=== PATIENT | female | born 1955 | race Caucasian/White ===

== ENCOUNTER 2019-11-24 11:17 | Inpatient (IN) | payer BC, MEDICAID ==
[~2019-11-24] VITALS: Ht 167.6 cm; Wt 70.2 kg
[2019-11-24] MEDS ORDERED: MORPHINE SULF INJ 2 MG/ML SYRINGE 1ML IV ONE ×2 (12:00→14:00)
[2019-11-24] MEDS ORDERED: ONDANSETRON HCL 4 MG/2 ML VIAL IV ONE ×2 (12:00→14:00)
[2019-11-24] MEDS ORDERED: SODIUM CHLORIDE 0.9% 1,000 ML IVB ONE (13:16)
[2019-11-24 14:15] LABS: Eosinophils # (auto) 0 10 ^3/uL (0-0.8); Eosinophils % (auto) 0.4 % (0.0-7.0); Hemoglobin 8.9 g/dL (12.2-16.2); Mean Corpuscular Hemoglobin 19.3 pg (28.0-32.0); Monocytes # (auto) 0.4 10 ^3/uL (0-1.3)
[2019-11-24 14:17] LABS: Basophils # (auto) 0 10 ^3/uL (0-0.2); Basophils % (auto) 0.4 % (0.0-2.0); Hematocrit 29.6 % (36.0-46.0); Lymphocytes # (auto) 0.8 10 ^3/uL (0.4-5.4); Lymphocytes % (auto) 7.4 % (10.0-50.0); Mean Corpuscular Hgb Conc. 30.1 g/dL (32.0-36.0); Monocytes % (auto) 4.2 % (0.0-12.0); Neutrophils % (auto) 87.6 % (37.0-80.0); Platelet Count (auto) 242 10^3/uL (140-450); Red Blood Cells 4.63 10^6/uL (4.0-5.20); Red Cell Distribution Width 19.4 % (11.8-14.3); White Blood Cell 10.2 10^3/uL (4.4-10.8)
[2019-11-24 14:23] LABS: Albumin 3.5 g/dL (3.4-5.0); BUN/Creatinine Ratio 14.3; Calcium 8.9 mg/dL (8.5-10.1); Magnesium 2.2 mg/dL (1.6-2.6); Potassium 3.8 mmol/L (3.5-5.1)
[2019-11-24 14:24] LABS: INR 0.98 (0.9-1.15); Partial Thromboplastin Time 23.1 sec (23.64-32.05)
[2019-11-24 14:26] LABS: Bilirubin, Total 0.4 mg/dL (0.2-1.0); Total Protein 7.7 g/dL (6.4-8.2)
[2019-11-24] MEDS ORDERED: METOCLOPRAMIDE HCL 5MG/ml INJ 2ml VIAL IV PRN (14:45)
[2019-11-24] MEDS ORDERED: TEMAZEPAM 15 MG CAP PO PRN (14:45)
[2019-11-24] MEDS ORDERED: ALUM & MAG HYDROX-SIMETH LIQ(MAALOX) 30 ML PO PRN (14:45)
[2019-11-24] MEDS ORDERED: HYDROcodone-ACET 5/325MG TAB PO PRN (14:45)
[2019-11-24] MEDS ORDERED: LORazepam 0.5 MG TAB PO PRN (14:45)
[2019-11-24] MEDS: D5W/SOD CHL 0.45% 1,000 ML IV SCH (14:45)
[2019-11-24] MEDS ORDERED: MORPHINE SULF INJ 2 MG/ML SYRINGE 1ML IV PRN (14:45)
[2019-11-24] MEDS ORDERED: DOCUSATE SOD 100 MG CAP PO PRN (14:45)
[2019-11-24] MEDS ORDERED: NITROGLYCERIN 0.4 MG SL TAB SL PRN (14:45)
[2019-11-24 15:05] LABS: Urine Amorphous Crystal FEW /hpf (None Seen); Urine Bacteria NONE SEEN /hpf (None Seen); Urine Blood Negative /uL (Negative); Urine Hyaline Cast FEW /lpf (0 - 2); Urine Specific Gravity 1.014 (1.001-1.035); Urine WBC 3 /hpf (0 - 5)
[2019-11-24] MEDS: MORPHINE SULFATE 4 MG/ML SYR/VIAL IV PRN ×2 (17:14→21:40)
[2019-11-24 22:00] VITALS: BP 109/69
[2019-11-24] MEDS ORDERED: PANTOPRAZOLE 40 MG/10 ML VIAL INJ IV ONE (23:15)
[2019-11-25] MEDS: MORPHINE SULFATE 4 MG/ML SYR/VIAL IV PRN ×2 (02:20→06:21)
[2019-11-25] MEDS: ONDANSETRON HCL 4 MG/2 ML VIAL IV PRN ×3 (05:31→17:56)
[2019-11-25 06:17] VITALS: BP 114/64
[2019-11-25 06:18] LABS: Basophils # (auto) 0 10 ^3/uL (0-0.2); Basophils % (auto) 0.4 % (0.0-2.0); Eosinophils # (auto) 0.1 10 ^3/uL (0-0.8); Hematocrit 26.9 % (36.0-46.0); Hemoglobin 8.1 g/dL (12.2-16.2); Lymphocytes # (auto) 0.8 10 ^3/uL (0.4-5.4); Lymphocytes % (auto) 12.4 % (10.0-50.0); Mean Corpuscular Hemoglobin 19.5 pg (28.0-32.0); Mean Corpuscular Hgb Conc. 30.1 g/dL (32.0-36.0); Mean Corpuscular Volume 64.9 fL (80.0-100.0); Monocytes # (auto) 0.6 10 ^3/uL (0-1.3); Monocytes % (auto) 9.1 % (0.0-12.0); Neutrophils # (auto) 4.8 10 ^3/uL (1.6-8.6); Neutrophils % (auto) 77.1 % (37.0-80.0); Nucleated Red Blood Cells % 0.1 %; Platelet Count (auto) 176 10^3/uL (140-450); Red Blood Cells 4.14 10^6/uL (4.0-5.20); Red Cell Distribution Width 19.4 % (11.8-14.3); White Blood Cell 6.2 10^3/uL (4.4-10.8)
[2019-11-25 06:43] LABS: Potassium 4.3 mmol/L (3.5-5.1)
[2019-11-25 07:00] LABS: BUN/Creatinine Ratio 14.1; Bilirubin, Total 0.7 mg/dL (0.2-1.0); Calcium 8.2 mg/dL (8.5-10.1); Magnesium 2.4 mg/dL (1.6-2.6); Phosphorus 2.4 mg/dL (2.5-4.90)
[2019-11-25 09:00] VITALS: BP 122/65
[2019-11-25] MEDS: HYDROmorphone HCL 2 MG/ML VL IV PRN ×2 (09:44→19:46)
[2019-11-25] MEDS: D5W/SOD CHL 0.45% 1,000 ML IV SCH (09:51)
[2019-11-25] MEDS ORDERED: ENOXAPARIN SOD 30 MG/0.3 ML SYRINGE SC SCH (10:00)
[2019-11-25] MEDS: PANTOPRAZOLE 40 MG/10 ML VIAL INJ IV SCH (10:22)
[2019-11-25 13:00] VITALS: BP 131/65
[2019-11-25 17:00] VITALS: BP 113/59
[2019-11-25 22:00] VITALS: BP 107/55
[2019-11-26] MEDS: HYDROmorphone HCL 2 MG/ML VL IV PRN ×5 (00:04→23:47)
[2019-11-26] MEDS: D5W/SOD CHL 0.45% 1,000 ML IV SCH ×2 (00:05→14:33)
[2019-11-26 05:00] VITALS: BP 121/61
[2019-11-26 05:24] LABS: Basophils # (auto) 0 10 ^3/uL (0-0.2); Eosinophils # (auto) 0 10 ^3/uL (0-0.8); Hemoglobin 7.7 g/dL (12.2-16.2); White Blood Cell 10.5 10^3/uL (4.4-10.8)
[2019-11-26 05:27] LABS: Basophils % (auto) 0.3 % (0.0-2.0); Eosinophils % (auto) 0.2 % (0.0-7.0); Hematocrit 25.7 % (36.0-46.0); Lymphocytes # (auto) 0.9 10 ^3/uL (0.4-5.4); Lymphocytes % (auto) 8.2 % (10.0-50.0); Mean Corpuscular Hemoglobin 19.6 pg (28.0-32.0); Mean Corpuscular Volume 65.3 fL (80.0-100.0); Monocytes # (auto) 1.3 10 ^3/uL (0-1.3); Monocytes % (auto) 12.6 % (0.0-12.0); Neutrophils # (auto) 8.3 10 ^3/uL (1.6-8.6); Neutrophils % (auto) 78.7 % (37.0-80.0); Platelet Count (auto) 171 10^3/uL (140-450); Red Blood Cells 3.94 10^6/uL (4.0-5.20); Red Cell Distribution Width 19.2 % (11.8-14.3)
[2019-11-26 05:45] LABS: Calcium 7.8 mg/dL (8.5-10.1); Potassium 3.6 mmol/L (3.5-5.1)
[2019-11-26 05:47] LABS: BUN/Creatinine Ratio 9.1
[2019-11-26] MEDS: ONDANSETRON HCL 4 MG/2 ML VIAL IV PRN ×4 (06:22→23:51)
[2019-11-26] MEDS: PANTOPRAZOLE 40 MG/10 ML VIAL INJ IV SCH (09:47)
[2019-11-26 13:00] VITALS: BP 135/69
[2019-11-26 17:00] VITALS: BP 137/73
[2019-11-26 22:00] VITALS: BP 121/65
[2019-11-27] MEDS: ONDANSETRON HCL 4 MG/2 ML VIAL IV PRN ×3 (04:01→12:35)
[2019-11-27] MEDS: HYDROmorphone HCL 2 MG/ML VL IV PRN ×3 (04:01→12:30)
[2019-11-27 05:41] VITALS: BP 113/64
[2019-11-27 06:43] LABS: Basophils # (auto) 0 10 ^3/uL (0-0.2); Basophils % (auto) 0.3 % (0.0-2.0); Eosinophils # (auto) 0 10 ^3/uL (0-0.8); Eosinophils % (auto) 0.3 % (0.0-7.0); Hematocrit 24.8 % (36.0-46.0); Hemoglobin 7.6 g/dL (12.2-16.2); Lymphocytes # (auto) 0.5 10 ^3/uL (0.4-5.4); Lymphocytes % (auto) 6.5 % (10.0-50.0); Mean Corpuscular Hemoglobin 19.8 pg (28.0-32.0); Mean Corpuscular Hgb Conc. 30.7 g/dL (32.0-36.0); Mean Corpuscular Volume 64.4 fL (80.0-100.0); Monocytes # (auto) 0.7 10 ^3/uL (0-1.3); Monocytes % (auto) 8.4 % (0.0-12.0); Neutrophils % (auto) 84.5 % (37.0-80.0); Platelet Count (auto) 173 10^3/uL (140-450); Red Blood Cells 3.85 10^6/uL (4.0-5.20); Red Cell Distribution Width 19.2 % (11.8-14.3); White Blood Cell 8.2 10^3/uL (4.4-10.8)
[2019-11-27 07:04] LABS: Potassium 3.9 mmol/L (3.5-5.1)
[2019-11-27 07:11] LABS: BUN/Creatinine Ratio 14.3; Calcium 8.2 mg/dL (8.5-10.1)
[2019-11-27 08:00] VITALS: BP 120/63
[2019-11-27] MEDS: PANTOPRAZOLE 40 MG/10 ML VIAL INJ IV SCH (08:25)
[2019-11-27 09:00] VITALS: BP 120/63
[2019-11-27] MEDS: D5W/SOD CHL 0.45% 1,000 ML IV SCH (09:25)
[2019-11-27 13:00] VITALS: BP 108/58
[2019-11-27 15:01] VITALS: BP 108/58
[2019-11-27 17:00] VITALS: BP 132/54
== END 2019-11-27 16:53 | disposition home or self-care (01) | DRG 342 ==
LOC: EDBD 11:17 → ER 11:17 → TELE 11:18 → TELE-CENTR 19:15
PROVIDERS: ADMIT Hospitalist; ATTEND Internal Medicine
DX: S82.142A Displaced bicondylar fracture of left tibia, initial encounter for closed fracture (principal); R71.0 Precipitous drop in hematocrit; F17.210 Nicotine dependence, cigarettes, uncomplicated; Z96.642 Presence of left artificial hip joint; S82.402A Unspecified fracture of shaft of left fibula, initial encounter for closed fracture; W01.0XXA Fall on same level from slipping, tripping and stumbling without subsequent striking against object, initial encounter; Z96.659 Presence of unspecified artificial knee joint; Z82.49 Family history of ischemic heart disease and other diseases of the circulatory system; Z86.711 Personal history of pulmonary embolism; Z86.718 Personal history of other venous thrombosis and embolism; Z90.710 Acquired absence of both cervix and uterus; Z98.84 Bariatric surgery status; Z99.3 Dependence on wheelchair; Y93.89 Activity, other specified; Y92.89 Other specified places as the place of occurrence of the external cause; Y99.8 Other external cause status
CPT/HCPCS: 36415; 71045; 72192; 73560; 73700; 80048; 80053; 81001; 83735; 84100; 85025; 85610; 85730; 93306; 96361; 96374; 96375; 96376; C9113; G0378; J2405

== ENCOUNTER → 2020-03-18 | Outpatient (CLI) | payer MEDICAID, OTHER ==
[~2020-03-18] MED LIST: CHOL1TAB16 PO
[2020-03-18 08:08] LABS: Eosinophils # (auto) 0.1 10 ^3/uL (0-0.8); Eosinophils % (auto) 2.4 % (0.0-7.0); Monocytes # (auto) 0.3 10 ^3/uL (0-1.3); Neutrophils # (auto) 2.8 10 ^3/uL (1.6-8.6); Nucleated Red Blood Cells % 0.1 %
[2020-03-18 08:12] LABS: Basophils # (auto) 0.2 10 ^3/uL (0-0.2); Basophils % (auto) 4.1 % (0.0-2.0); Hematocrit 33.9 % (36.0-46.0); Hemoglobin 10.4 g/dL (12.2-16.2); Lymphocytes # (auto) 0.8 10 ^3/uL (0.4-5.4); Lymphocytes % (auto) 19.9 % (10.0-50.0); Mean Corpuscular Hemoglobin 20.8 pg (28.0-32.0); Mean Corpuscular Hgb Conc. 30.6 g/dL (32.0-36.0); Monocytes % (auto) 6.9 % (0.0-12.0); Neutrophils % (auto) 66.7 % (37.0-80.0); Platelet Count (auto) 262 10^3/uL (140-450); Red Blood Cells 4.98 10^6/uL (4.0-5.20); Red Cell Distribution Width 18.2 % (11.8-14.3); White Blood Cell 4.2 10^3/uL (4.4-10.8)
[2020-03-18 08:32] LABS: % Iron Saturation 4.1 % (15-50)
[2020-03-18 08:35] LABS: INR 0.93 (0.9-1.15); Partial Thromboplastin Time 25.6 sec (23.0-31.2)
[2020-03-18 08:37] LABS: Potassium 4.2 mmol/L (3.5-5.1)
[2020-03-18 08:51] LABS: Albumin 3.5 g/dL (3.4-5.0); BUN/Creatinine Ratio 13.5; Bilirubin, Total 0.4 mg/dL (0.2-1.0); Calcium 9.2 mg/dL (8.5-10.1)
[2020-03-18 11:30] LABS: Ferritin 7.8 ng/mL (10-322); Folate (Folic Acid) 6.56 ng/mL (5.38-24)
== END | disposition home or self-care (01) ==
LOC: LAB 07:22
PROVIDERS: ATTEND Internal Medicine
DX: I10 Essential (primary) hypertension (principal); E11.65 Type 2 diabetes mellitus with hyperglycemia
CPT/HCPCS: 36415; 80053; 80061; 82274; 82306; 82607; 82728; 82746; 83036; 83540; 83550; 83615; 84443; 85025; 85045; 85610; 85730

== ENCOUNTER 2020-03-31 12:22 | Inpatient (IN) | payer OTHER, MEDICAID ==
[~2020-03-31] VITALS: Ht 165.1 cm; Wt 65.2 kg
[2020-03-31 13:28] LABS: Basophils # (auto) 0 10 ^3/uL (0-0.2); Eosinophils # (auto) 0.1 10 ^3/uL (0-0.8); Lymphocytes # (auto) 1.1 10 ^3/uL (0.4-5.4); Neutrophils # (auto) 3.8 10 ^3/uL (1.6-8.6); White Blood Cell 5.4 10^3/uL (4.4-10.8)
[2020-03-31 13:30] LABS: Basophils % (auto) 0.7 % (0.0-2.0); Eosinophils % (auto) 1.8 % (0.0-7.0); Hematocrit 33.6 % (36.0-46.0); Hemoglobin 10.4 g/dL (12.2-16.2); Lymphocytes % (auto) 21.2 % (10.0-50.0); Mean Corpuscular Hemoglobin 20.8 pg (28.0-32.0); Mean Corpuscular Hgb Conc. 30.9 g/dL (32.0-36.0); Mean Corpuscular Volume 67.4 fL (80.0-100.0); Monocytes # (auto) 0.3 10 ^3/uL (0-1.3); Monocytes % (auto) 6.1 % (0.0-12.0); Neutrophils % (auto) 70.2 % (37.0-80.0); Platelet Count (auto) 249 10^3/uL (140-450); Red Blood Cells 4.99 10^6/uL (4.0-5.20); Red Cell Distribution Width 17.3 % (11.8-14.3)
[2020-03-31 13:36] LABS: INR 0.83 (0.9-1.15)
[2020-03-31 13:39] LABS: Albumin 3.7 g/dL (3.4-5.0); Anion Gap 4 (5-15); Blood Urea Nitrogen 11 mg/dL (7-18); Calcium 9.9 mg/dL (8.5-10.1); Carbon Dioxide 30 mmol/L (21-32); Chloride 105 mmol/L (98-107); Glucose 86 mg/dL (74-106); Magnesium 2.5 mg/dL (1.6-2.6); Potassium 3.9 mmol/L (3.5-5.1); Sodium 139 mmol/L (136-145)
[2020-03-31 13:40] LABS: Partial Thromboplastin Time 20.1 sec (23.0-31.2)
[2020-03-31 13:43] LABS: Alanine Aminotransferase 15 U/L (13-56); Alkaline Phosphatase 123 U/L (45-117); Aspartate Aminotransferase 19 U/L (15-37); BUN/Creatinine Ratio 12.8; Bilirubin, Total 0.3 mg/dL (0.2-1.0); GFR African American 85 mL/min; GFR Non-African American 70 mL/min; Total Protein 8.1 g/dL (6.4-8.2)
[2020-03-31 16:22] LABS: Urine Bacteria NONE SEEN /hpf (None Seen); Urine Blood Negative /uL (Negative); Urine Specific Gravity 1.009 (1.001-1.035); Urine WBC 1 /hpf (0 - 5)
[2020-03-31] MEDS ORDERED: ALUM & MAG HYDROX-SIMETH LIQ(MAALOX) 30 ML PO ONE (17:00)
[2020-03-31] MEDS ORDERED: NITROGLYCERIN 0.4 MG SL TAB SL PRN ×3 (17:00→18:00)
[2020-03-31] MEDS ORDERED: MORPHINE SULF INJ 2 MG/ML SYRINGE 1ML IV PRN ×3 (17:00→18:00)
[2020-03-31] MEDS ORDERED: MORPHINE SULFATE 4 MG/ML SYR/VIAL IV PRN (17:00)
[2020-03-31] MEDS ORDERED: MULTIPLE VITAMIN TAB PO ONE (17:30)
[2020-03-31] MEDS ORDERED: LACTATED RINGER'S 1,000 ML IV ONE (17:30)
[2020-03-31] MEDS ORDERED: FOLIC ACID 1 MG TAB PO ONE (17:30)
[2020-03-31] MEDS ORDERED: CALCIUM W/VIT D (600MG/400IU) TAB PO ONE (17:30)
[2020-03-31 17:57] VITALS: BP 131/72
[2020-03-31] MEDS ORDERED: ACETAMINOPHEN 325 MG TAB PO PRN (18:00)
--- NOTE | 2020-03-31 18:00 | NUR ---
Telemetry admit from ER EASTON BRUNO admitted to Telemetry unit after SBAR received. Patient oriented to Ina Esquivel primary RN, unit, room, bed, and unit policies regarding patient care and visiting hours. Patient now on continuous telemetry monitoring, tele box #82 and telemetry reading on arrival to unit is SR 67 bpm. Patient weighed by bed scale. Instructed patient on POC, fall precautions and to call for assistance as needed. Patient verbalized understanding. Fall precautions in place with call light within reach.
[2020-03-31] MEDS: SODIUM CHLORIDE 0.9% 1,000 ML IV SCH (18:15)
--- NOTE | 2020-03-31 18:30 | NUR ---
BSC placed at bedside
--- NOTE | 2020-03-31 18:43 | NUR ---
Closing note Patient resting in bed with even and unlabored respirations, no distress noted. Fall precautions in place with call light within reach.
--- NOTE | 2020-03-31 19:18 | NUR ---
Care endorsed to ADOLFO Olivo.
[2020-03-31] MEDS: ATORVASTATIN 20 MG TAB PO SCH (21:32)
[2020-03-31] MEDS: FAMOTIDINE 20 MG TAB PO SCH (21:32)
[2020-03-31] MEDS: ONDANSETRON HCL 4 MG/2 ML VIAL IV PRN (21:32)
[2020-03-31] MEDS: CARVEDILOL 3.125 MG TAB PO SCH ×2 (21:33→21:35)
[2020-03-31 22:00] VITALS: BP 142/84
[2020-03-31 23:08] LABS: Alcohol, Urine < 3.0 mg/dL (0-10); Cannabinoid Screen, Urine POSITIVE (NEGATIVE); Cocaine Screen, Urine NEGATIVE (NEGATIVE); Phencyclidine Screen, Urine NEGATIVE (NEGATIVE)
[2020-03-31 23:15] LABS: Amphetamine Screen, Urine NEGATIVE (NEGATIVE); Barbiturate Scree,Urine NEGATIVE (NEGATIVE); Benzodiazephine Screen, Urine NEGATIVE (NEGATIVE); Opiate Scree,Urine NEGATIVE (NEGATIVE)
[2020-04-01] VITALS (8 sets, daily range): BP systolic 101–158; BP diastolic 53–74
[2020-04-01] MEDS: ONDANSETRON HCL 4 MG/2 ML VIAL IV PRN ×3 (05:25→21:20)
[2020-04-01] MEDS: HYDROcodone-ACET 5/325MG TAB PO PRN ×3 (05:25→21:21)
[2020-04-01] MEDS: SODIUM CHLORIDE 0.9% 1,000 ML IV SCH ×2 (05:26→19:45)
--- NOTE | 2020-04-01 07:20 | NUR ---
Opening Shift Note Assumed care of patient, awake and alert. No S/S of distress/SOB or pain. Bed is low, locked with 2x side rails up. Call light is within reach. Instructed on POC and to call for assist PRN, will continue to monitor for changes Q1hr and PRN.
[2020-04-01] MEDS: LISINOPRIL 5 MG TAB PO SCH (09:14)
[2020-04-01] MEDS: MULTIPLE VITAMIN TAB PO SCH (09:14)
[2020-04-01] MEDS: FAMOTIDINE 20 MG TAB PO SCH (09:14)
[2020-04-01] MEDS: CARVEDILOL 3.125 MG TAB PO SCH (09:14)
[2020-04-01] MEDS: CALCIUM W/VIT D (600MG/400IU) TAB PO SCH ×2 (09:14→17:37)
[2020-04-01] MEDS: FOLIC ACID 1 MG TAB PO SCH (09:15)
[2020-04-01] MEDS: DOCUSATE SOD 100 MG CAP PO SCH (09:15)
[2020-04-01] MEDS ORDERED: ASPirin 81 mg TAB PO SCH (10:00)
--- NOTE | 2020-04-01 10:00 | NUR ---
Dr. Lantigua at bedside Discussing POC with patient. MD aware of elevated blood pressure. MD to review medications and input orders. Will continue to monitor Q1hr and PRN.
[2020-04-01] MEDS ORDERED: CHOL1TAB16 PO (10:30)
--- NOTE | 2020-04-01 10:31 | NUR ---
Home medication Patient reports only taking Vitamin D3 50,000 units PO once weekly. Patient states her first dose was last Wednesday03/27/20. Medication reconciliation updated.
[2020-04-01] MEDS ORDERED: PANTOPRAZOLE 40 MG TAB PO ONE (11:15)
[2020-04-01] MEDS ORDERED: amLODIPine BESYLATE 5 MG TAB PO ONE (11:45)
--- NOTE | 2020-04-01 12:01 | NUR ---
Cardio at bedside FARMWORK[employer] BULBS Cancino at bedside discussing poc with patient.
--- NOTE | 2020-04-01 12:55 | NUR ---
Nutrition Assessment Est energy needs 6474-3499 kcal (25-30 kcal/kg BW 64.5kg) Est protein needs 52-65g (0.8-1g/kg BW 64.5kg) Will reassess prn. Addendum: 04/01/20 at [address] Amended: Links added.
[2020-04-01] MEDS ORDERED: IOHEXOL 350 MG/ML 100ML IJ ONE ×2 (13:42→15:23)
[2020-04-01] MEDS ORDERED: NICOTINE 14 MG/24HR TOPICAL PATCH TD ONE (14:00)
--- NOTE | 2020-04-01 14:36 | NUR ---
Orthostatic VS Done. See interventions.
--- NOTE | 2020-04-01 19:20 | NUR ---
Opening Shift Note Received report from Lacey MATA. Assumed care of patient, awake and alert. No S/S of distress/SOB or pain. Instructed on POC and to call for assist PRN, will continue to monitor for changes Q1hr and PRN.
--- NOTE | 2020-04-01 22:05 | NUR ---
Dr. Gomez at bedside.
[2020-04-01] MEDS: PANTOPRAZOLE 40 MG TAB PO SCH (22:14)
[2020-04-01] MEDS: ATORVASTATIN 20 MG TAB PO SCH (22:14)
[2020-04-02 05:23] VITALS: BP 114/63
[2020-04-02] MEDS: ONDANSETRON HCL 4 MG/2 ML VIAL IV PRN ×2 (05:42→17:02)
--- NOTE | 2020-04-02 05:43 | NUR ---
Patient complains of head, neck and shoulder pain at 6, refused Oscar and preferred to take Tylenol instead, medication given.
[2020-04-02 06:18] LABS: % Iron Saturation 8.3 % (15-50)
[2020-04-02] MEDS: SODIUM CHLORIDE 0.9% 1,000 ML IV SCH ×2 (08:59→22:19)
[2020-04-02] MEDS: FOLIC ACID 1 MG TAB PO SCH (09:42)
[2020-04-02] MEDS: CALCIUM W/VIT D (600MG/400IU) TAB PO SCH ×2 (09:42→17:01)
[2020-04-02] MEDS: LISINOPRIL 5 MG TAB PO SCH (09:45)
[2020-04-02] MEDS: MULTIPLE VITAMIN TAB PO SCH (09:46)
[2020-04-02] MEDS: NICOTINE 14 MG/24HR TOPICAL PATCH TD SCH (09:46)
[2020-04-02] MEDS: PANTOPRAZOLE 40 MG TAB PO SCH ×2 (09:46→22:00)
[2020-04-02] MEDS: DOCUSATE SOD 100 MG CAP PO SCH (09:46)
[2020-04-02] MEDS: LORazepam 0.5 MG TAB PO PRN ×2 (09:46→20:27)
[2020-04-02] MEDS: amLODIPine BESYLATE 5 MG TAB PO SCH (09:47)
--- NOTE | 2020-04-02 09:51 | NUR ---
Dr. Samuel at bedside Discussing POC with patient. Patient does not want to do colonoscopy procedure while inpatient. Patient is an agreement with endoscopy. MD to input new orders.
--- NOTE | 2020-04-02 12:20 | NUR ---
Dr. Laguerre and Dr. Samuel at bedside Discussing POC with patient. New orders received/ carried out.
[2020-04-02] MEDS: HYDROcodone-ACET 5/325MG TAB PO PRN (14:11)
--- NOTE | 2020-04-02 14:33 | NUR ---
pyrotechnic assembler at bedside.
--- NOTE | 2020-04-02 15:21 | NUR ---
EEG-ELECTROENCEPHALOGRAM COMPLETED @ 15:57.
--- NOTE | 2020-04-02 16:27 | NUR ---
IV insertion IV access obtained, via clean sterile technique by inserting a 22 gauge catheter at the left FA after 1 attempt(s). IV secured properly. No trauma to site. Patient tolerated procedure well.
--- NOTE | 2020-04-02 17:28 | NUR ---
COVID 19 Antigen Elsa Test Walked to lab by this RN.
[2020-04-02] MEDS ORDERED: SODIUM FERR GLUC 62.5MG/5ML 125 MG in SODIUM CHL 0.9% 100 ML IV ONE (17:30)
[2020-04-02] MEDS ORDERED: cefTRIAXone 1GM/50ML D5W 50 ML IV ONE ×2 (17:30→20:00)
--- NOTE | 2020-04-02 18:40 | NUR ---
Patient refusing inhouse COVID test Per hospital protocol, lashonda COVID antigen test must be followed up with inhouse COVID test. Patient is refusing follow up test. Attempted to [employer] travel counselor patient on importance of follow up test and patient still declined. Made Dr. Laguerre aware of patient's refusal. No new orders received. Consents for EGD filed in the chart.
[2020-04-02 22:00] VITALS: BP 105/62
[2020-04-02] MEDS: ATORVASTATIN 20 MG TAB PO SCH (22:00)
[2020-04-03 05:00] VITALS: BP 116/65
[2020-04-03 06:34] LABS: Basophils # (auto) 0 10 ^3/uL (0-0.2); Eosinophils # (auto) 0.1 10 ^3/uL (0-0.8); Hemoglobin 9.8 g/dL (12.2-16.2); Lymphocytes # (auto) 0.8 10 ^3/uL (0.4-5.4); Monocytes # (auto) 0.4 10 ^3/uL (0-1.3); Neutrophils # (auto) 4.2 10 ^3/uL (1.6-8.6); White Blood Cell 5.6 10^3/uL (4.4-10.8)
[2020-04-03 06:37] LABS: Basophils % (auto) 0.8 % (0.0-2.0); Eosinophils % (auto) 1.6 % (0.0-7.0); Lymphocytes % (auto) 14.3 % (10.0-50.0); Mean Corpuscular Hemoglobin 20.8 pg (28.0-32.0); Mean Corpuscular Hgb Conc. 30.6 g/dL (32.0-36.0); Monocytes % (auto) 7.7 % (0.0-12.0); Neutrophils % (auto) 75.6 % (37.0-80.0); Platelet Count (auto) 215 10^3/uL (140-450); Red Cell Distribution Width 17.4 % (11.8-14.3)
[2020-04-03 06:49] LABS: BUN/Creatinine Ratio 13.8; Calcium 8.5 mg/dL (8.5-10.1)
[2020-04-03] MEDS ORDERED: FLUMAZENIL 0.1 MG/ML INJ 10ML MDV IV ONE (07:24)
[2020-04-03] MEDS ORDERED: NALOXONE HCL 0.4 MG/ML VIAL ONE (07:24)
--- NOTE | 2020-04-03 07:56 | NUR ---
gi lab called for patient to be taken for egd
[2020-04-03] MEDS: CALCIUM W/VIT D (600MG/400IU) TAB PO SCH (08:00)
--- NOTE | 2020-04-03 08:13 | NUR ---
pt taken to gi lab for egd procedure
[2020-04-03 09:00] VITALS: BP 126/67
[2020-04-03] MEDS ORDERED: cefTRIAXone 1GM/50ML D5W 50 ML IV SCH (09:00)
[2020-04-03] MEDS ORDERED: HYDROmorphone HCL 2 MG/ML VL IV PRN (09:30)
[2020-04-03] MEDS ORDERED: MIDAZOLAM HCL 1MG/1ML-2 ML VIAL IV PRN (09:30)
[2020-04-03] MEDS ORDERED: MORPHINE SULFATE 4 MG/ML SYR/VIAL IV PRN (09:30)
[2020-04-03] MEDS ORDERED: ePHEDrine SULFATE 50 MG/ML AMP IV PRN (09:30)
[2020-04-03] MEDS ORDERED: LABETALOL HCL 5 MG/ML 4ML SYRINGE IV PRN (09:30)
[2020-04-03] MEDS ORDERED: ONDANSETRON HCL 4 MG/2 ML VIAL IV PRN (09:30)
--- NOTE | 2020-04-03 09:30 | NUR ---
SPOKE TO FAMILY UPDATED ON PLAN OF CARE
[2020-04-03] MEDS ORDERED: fentaNYL CITRATE 100 MCG/2 ML VL ONE (09:33)
[2020-04-03] MEDS ORDERED: MIDAZOLAM HCL 1MG/1ML-2 ML VIAL ONE (09:33)
[2020-04-03] MEDS ORDERED: DexAMETHasone SOD PHOS 10MG/1ML VIAL INJ ONE (09:47)
[2020-04-03] MEDS ORDERED: PROPOFOL 10 MG/ML 20 ML IV ONE (09:47)
[2020-04-03] MEDS: MULTIPLE VITAMIN TAB PO SCH (10:00)
[2020-04-03] MEDS: NICOTINE 14 MG/24HR TOPICAL PATCH TD SCH (10:00)
[2020-04-03] MEDS: LISINOPRIL 5 MG TAB PO SCH (10:00)
[2020-04-03] MEDS: FOLIC ACID 1 MG TAB PO SCH (10:00)
[2020-04-03] MEDS: PANTOPRAZOLE 40 MG TAB PO SCH (10:00)
[2020-04-03] MEDS: amLODIPine BESYLATE 5 MG TAB PO SCH (10:00)
[2020-04-03] MEDS: DOCUSATE SOD 100 MG CAP PO SCH (10:00)
--- NOTE | 2020-04-03 10:05 | NUR ---
RECIEVED REPORT FROM ANGIE AFTER EGD PROCEDURE
--- NOTE | 2020-04-03 10:24 | NUR ---
PATIENT BACK IN ROOM
[2020-04-03] MEDS: LORazepam 0.5 MG TAB PO PRN (11:06)
[2020-04-03] MEDS: ONDANSETRON HCL 4 MG/2 ML VIAL IV PRN (11:06)
[2020-04-03] MEDS ORDERED: SUCRALFATE 1 GM/10 ML ORAL SUSP PO SCH (11:30)
--- NOTE | 2020-04-03 11:35 | NUR ---
Assessment Patient is a 65-year-old female who is alert and oriented. Prior to admission patient lived home with her and functioned with assistance. Per patient her helps her with her ADLs. Per patient she is unable to walk now due to hurting her knee on November 13. Patient states she uses her wheelchair but also has a walker. Per patient she will return to her prior living arraignments post discharge and her will transport her home. Informed patient she has a right to participate in all discharge planning. Patient verbalized understanding. Per MD patient has no needs at this time and he will follow patient at his clinic upon discharge day. Addendum: 04/03/20 at 1137 by NICO YING Amended: Links added.
[2020-04-03] MEDS: SODIUM CHLORIDE 0.9% 1,000 ML IV SCH (11:39)
[2020-04-03] MEDS ORDERED: SODIUM FERR GLUC 62.5MG/5ML 125 MG in SODIUM CHL 0.9% 100 ML IV SCH (12:00)
--- NOTE | 2020-04-03 12:57 | NUR ---
Nutrition Followup Notes Pt wt is 65.2 kg Pt was awake when rounded this morning. Pt in no distress, pt upgraded to a Regular diet with no PO intake yet recorded. Est energy needs 6014-7952 kcal (25-30 kcal/kg BW 64.5kg) Est protein needs 52-65g (0.8-1g/kg BW 64.5kg) Will reassess prn. LABS: Cl [facility] GI: Pt had 1 BM on 04/03 per RN doc BS: No score recorded. Refer to wound assessment report for full details. PES: No current Nutritional Pr Comments 1) Continue to monitor po intake, labs, skin 2) Refer pt to [facility] on DC 3) Continue current plan of care
[2020-04-03 13:00] VITALS: BP 99/55
--- NOTE | 2020-04-03 15:00 | NUR ---
NOTED PT EMOTIONALLY DISTRESSED CRYING YELLING AT THIS NURSE, STATING "I HAVE BEEN CALLING FOR OVER 45 MINUTES AND NO ONE TOLD YOU I WAS IN PAIN WHERE MY IV IS" I EXPLAINED TO PT I WAS ON MY LUNCH BREAK AND HAD A COVERING NURSE DURING THAT TIME. ASKED PT IF I CAN ASSESS OLD IV SITE AFTER NOTING IV WAS REMOVED. PT YELLING STILL STATED "GO DO YOUR JOB AND LEAVE ME ALONE IM HAVING A PANIC ATTACK, WHEN WILL I BE DISCHARGED?" ADVISED TO PT THE ORDER IS IN AND SHOULD BE DONE WITHIN THE HOUR. PT STATED "JUST GO DO YOUR JOB AND TAKE YOUR HATRED OUT ON ME LEAVE" ACKNOWLEDGED PT REQUEST AND LEFT ROOM TO NOTIFY OF PT DISCHARGE.
--- NOTE | 2020-04-03 15:08 | NUR ---
SPOKE TO PT REGARDING DISCHARGE TOLD HIM TO PICK PT UP IN ONE HOUR, TOLD HIM CO PAYMENT FOR MEDICATION AT [facility] IS $1.30
--- NOTE | 2020-04-03 16:00 | NUR ---
pt discharged home iv removed tele box sent to tele room prescriptions filled and picked up
== END 2020-04-03 16:00 | disposition home or self-care (01) | DRG 811 ==
LOC: EDBD 12:22 → ER 12:22 → TELE 12:23 → TELE-WESTW 17:44
PROVIDERS: ADMIT Hospitalist; ATTEND Internal Medicine
PROC: 0DB68ZX Excision of Stomach, Via Natural or Artificial Opening Endoscopic, Diagnostic (ICD-10-PCS; principal; 2020-04-03 09:15)
DX: D50.9 Iron deficiency anemia, unspecified (principal); K29.51 Unspecified chronic gastritis with bleeding; K29.81 Duodenitis with bleeding; E46 Unspecified protein-calorie malnutrition; N30.00 Acute cystitis without hematuria; M19.90 Unspecified osteoarthritis, unspecified site; Z98.84 Bariatric surgery status; I65.21 Occlusion and stenosis of right carotid artery; I10 Essential (primary) hypertension; E11.9 Type 2 diabetes mellitus without complications; E78.5 Hyperlipidemia, unspecified; F12.90 Cannabis use, unspecified, uncomplicated; F17.210 Nicotine dependence, cigarettes, uncomplicated; K21.0 Gastro-esophageal reflux disease with esophagitis; Z96.642 Presence of left artificial hip joint; J43.9 Emphysema, unspecified; K29.50 Unspecified chronic gastritis without bleeding; Z20.828 Contact with and (suspected) exposure to other viral communicable diseases; Z80.0 Family history of malignant neoplasm of digestive organs; Z82.49 Family history of ischemic heart disease and other diseases of the circulatory system; Z86.718 Personal history of other venous thrombosis and embolism; Z90.710 Acquired absence of both cervix and uterus; Z68.23 Body mass index [BMI] 23.0-23.9, adult
CPT/HCPCS: 36415; 70450; 70551; 71045; 71275; 80048; 80053; 80307; 81001; 83036; 83540; 83550; 83735; 84484; 85025; 85610; 85730; 87086; 87426; 93005; 93886; 93970; 95819; G0378; J0696; J1100; J2250; J2405; J2704

== ENCOUNTER → 2020-05-15 | Outpatient (CLI) | payer OTHER ==
[2020-05-15 08:16] LABS: Basophils # (auto) 0 10 ^3/uL (0-0.2); Eosinophils # (auto) 0.1 10 ^3/uL (0-0.8); Hemoglobin 11.4 g/dL (12.2-16.2); Lymphocytes # (auto) 0.7 10 ^3/uL (0.4-5.4); Monocytes # (auto) 0.3 10 ^3/uL (0-1.3); Neutrophils # (auto) 4.9 10 ^3/uL (1.6-8.6)
[2020-05-15 08:18] LABS: Basophils % (auto) 0.6 % (0.0-2.0); Eosinophils % (auto) 1.2 % (0.0-7.0); Hematocrit 35.7 % (36.0-46.0); Lymphocytes % (auto) 11.4 % (10.0-50.0); Neutrophils % (auto) 81.8 % (37.0-80.0); Platelet Count (auto) 239 10^3/uL (140-450); Red Blood Cells 4.96 10^6/uL (4.0-5.20)
[2020-05-15 08:26] LABS: Red Cell Distribution Width 23.4 % (11.8-14.3)
[2020-05-15 09:08] LABS: Calcium 9.6 mg/dL (8.5-10.1); Potassium 4.6 mmol/L (3.5-5.1)
[2020-05-15 09:11] LABS: BUN/Creatinine Ratio 17.6
== END | disposition home or self-care (01) ==
LOC: LAB 07:45
PROVIDERS: ATTEND Student in an Organized Health Care Education/Training Program
DX: I65.23 Occlusion and stenosis of bilateral carotid arteries (principal); D64.9 Anemia, unspecified
CPT/HCPCS: 36415; 80048; 80061; 84443; 85025

== ENCOUNTER → 2020-06-26 | Day surgery (SDC) | payer OTHER ==
[2020-06-21 09:20] LABS: Eosinophils # (auto) 0.1 10 ^3/uL (0-0.8); Hemoglobin 11.6 g/dL (12.2-16.2); Lymphocytes # (auto) 1.1 10 ^3/uL (0.4-5.4); Mean Corpuscular Hemoglobin 22.7 pg (28.0-32.0); Monocytes # (auto) 0.4 10 ^3/uL (0-1.3); Neutrophils # (auto) 3.4 10 ^3/uL (1.6-8.6)
[2020-06-21 09:22] LABS: Basophils # (auto) 0 10 ^3/uL (0-0.2); Basophils % (auto) 0.6 % (0.0-2.0); Eosinophils % (auto) 1.8 % (0.0-7.0); Hematocrit 37.1 % (36.0-46.0); Lymphocytes % (auto) 21.5 % (10.0-50.0); Mean Corpuscular Hgb Conc. 31.3 g/dL (32.0-36.0); Mean Corpuscular Volume 72.6 fL (80.0-100.0); Monocytes % (auto) 7.2 % (0.0-12.0); Neutrophils % (auto) 68.9 % (37.0-80.0); Platelet Count (auto) 245 10^3/uL (140-450); White Blood Cell 4.9 10^3/uL (4.4-10.8)
[2020-06-21 09:29] LABS: Red Cell Distribution Width 20.7 % (11.8-14.3)
[2020-06-21 09:32] LABS: INR 0.92 (0.9-1.15); Partial Thromboplastin Time 25.6 sec (23.0-31.2)
[~2020-06-26] VITALS: Ht 165.1 cm; Wt 65.8 kg
[~2020-06-26] MED LIST changes: +MIDAZOLAM HCL 5 MG/ML-1ML VIAL IV ONE; +PANT40TA2 PO; +SODIUM CHLOR 0.9% PF (SALINE LOCK) 10ML VIAL/SYR IV ONE; +SODIUM CHLORIDE LOCK 10 ML ONE; +diphenhdrAMINE HCL 50 MG/1 ML VL IV ONE; +fentaNYL CITRATE 100 MCG/2 ML VL IV ONE
[2020-06-26] MEDS: MIDAZOLAM HCL 5 MG/ML-1ML VIAL ONE ×3 (14:06→14:14)
[2020-06-26] MEDS: fentaNYL CITRATE 100 MCG/2 ML VL ONE ×2 (14:06→14:09)
[2020-06-26] MEDS: diphenhdrAMINE HCL 50 MG/1 ML VL ONE ×2 (14:14→14:18)
[2020-06-26 15:04] VITALS: BP 125/67
== END | disposition home or self-care (01) ==
LOC: GI 12:33
PROVIDERS: ATTEND Internal Medicine Gastroenterology
DX: K92.1 Melena (principal); D12.5 Benign neoplasm of sigmoid colon; K57.30 Diverticulosis of large intestine without perforation or abscess without bleeding; K63.89 Other specified diseases of intestine; K44.9 Diaphragmatic hernia without obstruction or gangrene; D64.9 Anemia, unspecified; F17.210 Nicotine dependence, cigarettes, uncomplicated; I26.99 Other pulmonary embolism without acute cor pulmonale; N81.10 Cystocele, unspecified; Z98.890 Other specified postprocedural states; Z20.828 Contact with and (suspected) exposure to other viral communicable diseases; Z90.710 Acquired absence of both cervix and uterus; Z79.899 Other long term (current) drug therapy; Z86.718 Personal history of other venous thrombosis and embolism
CPT/HCPCS: 36415; 45385; 85025; 85610; 85730; J7030; U0003; 99152; 99153; J2250

== ENCOUNTER 2020-12-16 14:30 | Emergency (ER) | payer MEDICAID, OTHER ==
[~2020-12-16] VITALS: Ht 160 cm; Wt 56.7 kg
[~2020-12-16 14:30] MED LIST changes: -MIDAZOLAM HCL 5 MG/ML-1ML VIAL IV ONE; -SODIUM CHLOR 0.9% PF (SALINE LOCK) 10ML VIAL/SYR IV ONE; -SODIUM CHLORIDE LOCK 10 ML ONE; -diphenhdrAMINE HCL 50 MG/1 ML VL IV ONE; -fentaNYL CITRATE 100 MCG/2 ML VL IV ONE
[2020-12-16 14:56] LABS: Eosinophils # (auto) 0.1 10 ^3/uL (0-0.8); Hemoglobin 11.2 g/dL (12.2-16.2); Lymphocytes # (auto) 1.1 10 ^3/uL (0.4-5.4); Mean Corpuscular Volume 69.7 fL (80.0-100.0); Monocytes # (auto) 0.4 10 ^3/uL (0-1.3); Neutrophils # (auto) 5.5 10 ^3/uL (1.6-8.6); White Blood Cell 7.1 10^3/uL (4.4-10.8)
[2020-12-16 14:57] LABS: Basophils # (auto) 0 10 ^3/uL (0-0.2); Basophils % (auto) 0.7 % (0.0-2.0); Eosinophils % (auto) 0.8 % (0.0-7.0); Hematocrit 34.8 % (36.0-46.0); Lymphocytes % (auto) 15.5 % (10.0-50.0); Mean Corpuscular Hemoglobin 22.5 pg (28.0-32.0); Mean Corpuscular Hgb Conc. 32.2 g/dL (32.0-36.0); Monocytes % (auto) 5.2 % (0.0-12.0); Neutrophils % (auto) 77.8 % (37.0-80.0); Platelet Count (auto) 254 10^3/uL (140-450); Red Blood Cells 4.99 10^6/uL (4.0-5.20); Red Cell Distribution Width 17.7 % (11.8-14.3)
[2020-12-16 15:13] LABS: Albumin 3.6 g/dL (3.4-5.0); Anion Gap 8 (5-15); Aspartate Aminotransferase 24 U/L (15-37); BUN/Creatinine Ratio 13.6; Blood Urea Nitrogen 12 mg/dL (7-18); Calcium 9.4 mg/dL (8.5-10.1); Carbon Dioxide 24 mmol/L (21-32); Chloride 106 mmol/L (98-107); GFR African American 83 mL/min; GFR Non-African American 69 mL/min; Glucose 123 mg/dL (74-106); Potassium 3.7 mmol/L (3.5-5.1); Sodium 138 mmol/L (136-145)
[2020-12-16 15:22] LABS: Alanine Aminotransferase 20 U/L (13-56); Alkaline Phosphatase 103 U/L (45-117); Bilirubin, Total 0.3 mg/dL (0.2-1.0); Total Protein 8.3 g/dL (6.4-8.2)
[2020-12-16 15:43] LABS: Urine Bacteria FEW /hpf (None Seen); Urine Blood Negative /uL (Negative); Urine Mucus FEW (None Seen); Urine Specific Gravity 1.024 (1.001-1.035); Urine WBC 13 /hpf (0 - 5)
[2020-12-16] MEDS ORDERED: cefTRIAXone 1GM/50ML D5W 50 ML IV ONE ×2 (16:30→17:45)
[2020-12-16] MEDS ORDERED: HYDROcodone-ACET 5/325MG TAB PO ONE (17:15)
[2020-12-16] MEDS ORDERED: ASPirin 81 mg TAB PO ONE (17:15)
[2020-12-16] MEDS ORDERED: cefTRIAXone SOD 1,000 MG VL IM ONE (17:30)
[2020-12-16 18:02] VITALS: BP 111/72
== END 2020-12-16 18:04 | disposition home or self-care (01) ==
LOC: ER 14:30 → EDBD 14:30 → ER 18:04
DX: M79.10 Myalgia, unspecified site (principal); N39.0 Urinary tract infection, site not specified; D64.9 Anemia, unspecified; I10 Essential (primary) hypertension; I25.10 Atherosclerotic heart disease of native coronary artery without angina pectoris; Z90.710 Acquired absence of both cervix and uterus; Z90.89 Acquired absence of other organs; Z87.891 Personal history of nicotine dependence; Z79.899 Other long term (current) drug therapy
CPT/HCPCS: 36415; 71045; 80053; 81001; 84484; 85025; 96374; 99285; J0696; 93005

== ENCOUNTER → 2021-03-19 | Outpatient (CLI) | payer OTHER ==
[2021-03-19 09:42] LABS: Albumin 3.3 g/dL (3.4-5.0); Calcium 10.3 mg/dL (8.5-10.1)
[2021-03-19 09:47] LABS: BUN/Creatinine Ratio 15.1; Bilirubin, Total 0.3 mg/dL (0.2-1.0); Total Protein 7.9 g/dL (6.4-8.2)
[2021-03-19 10:13] LABS: Free T3 2.45 pg/mL (2.3-4.2); Free T4 (Free Thyroxine) 0.98 ng/dL (0.89-1.76)
== END | disposition home or self-care (01) ==
LOC: LAB 08:49
PROVIDERS: ATTEND Internal Medicine Endocrinology, Diabetes & Metabolism
DX: E05.90 Thyrotoxicosis, unspecified without thyrotoxic crisis or storm (principal)
CPT/HCPCS: 36415; 80053; 84439; 84443; 84481

== ENCOUNTER → 2021-03-20 | Outpatient (CLI) | payer MEDICAID, OTHER | END | disposition home or self-care (01) | LOC: XY 13:30 | PROVIDERS: ATTEND Internal Medicine | DX: E04.1 Nontoxic single thyroid nodule (principal) | CPT/HCPCS: 78014; A9516 ==

== ENCOUNTER → 2021-05-07 | Outpatient (CLI) | payer OTHER ==
[2021-05-07 07:36] LABS: Basophils # (auto) 0 10 ^3/uL (0-0.2); Eosinophils # (auto) 0.1 10 ^3/uL (0-0.8); Lymphocytes # (auto) 0.9 10 ^3/uL (0.4-5.4); Mean Corpuscular Volume 73.5 fL (80.0-100.0); Monocytes # (auto) 0.4 10 ^3/uL (0-1.3); Monocytes % (auto) 6.6 % (0.0-12.0); Neutrophils # (auto) 4.5 10 ^3/uL (1.6-8.6); Nucleated Red Blood Cells % 0.1 %; White Blood Cell 5.9 10^3/uL (4.4-10.8)
[2021-05-07 07:38] LABS: Basophils % (auto) 0.5 % (0.0-2.0); Eosinophils % (auto) 2.2 % (0.0-7.0); Hematocrit 33.2 % (36.0-46.0); Hemoglobin 10.6 g/dL (12.2-16.2); Lymphocytes % (auto) 14.4 % (10.0-50.0); Mean Corpuscular Hemoglobin 23.5 pg (28.0-32.0); Neutrophils % (auto) 76.3 % (37.0-80.0); Red Blood Cells 4.51 10^6/uL (4.0-5.20); Red Cell Distribution Width 18.5 % (11.8-14.3)
[2021-05-07 07:47] LABS: Urine Bacteria NONE SEEN /hpf (None Seen); Urine Blood Negative /uL (Negative); Urine Mucus FEW (None Seen); Urine Specific Gravity 1.017 (1.001-1.035); Urine WBC 5 /hpf (0 - 5)
[2021-05-07 08:16] LABS: Albumin 3.5 g/dL (3.4-5.0); Calcium 9.3 mg/dL (8.5-10.1); Potassium 4.2 mmol/L (3.5-5.1)
[2021-05-07 08:24] LABS: BUN/Creatinine Ratio 15.3; Bilirubin, Total 0.7 mg/dL (0.2-1.0)
[2021-05-07 11:08] LABS: Free T4 (Free Thyroxine) 1.03 ng/dL (0.89-1.76)
[2021-05-08 06:06] LABS: Immunoglobulin G, Serum 1439 mg/dL (586-1602)
[2021-05-08 09:39] LABS: Hepatitis B Surface Antibody Negative
[2021-05-08 10:27] LABS: Hepatitis B Core IgM Negative; Hepatitis B Core Total AB Negative; Hepatitis C Antibody Negative (Negative)
[2021-05-08 10:28] LABS: Hepatitis B Surface Antigen Negative (Negative)
== END | disposition home or self-care (01) ==
LOC: LAB 06:59
PROVIDERS: ATTEND Internal Medicine
DX: K21.9 Gastro-esophageal reflux disease without esophagitis (principal); J44.9 Chronic obstructive pulmonary disease, unspecified; I70.90 Unspecified atherosclerosis; G62.9 Polyneuropathy, unspecified; E16.2 Hypoglycemia, unspecified
CPT/HCPCS: 36415; 80053; 80061; 81001; 82306; 82607; 82784; 83036; 83970; 84207; 84439; 84443; 85025; 85652; 86334; 86704; 86705; 86706; 86800; 86803; 87340

== ENCOUNTER 2021-07-04 12:18 | Emergency (ER) | payer MEDICAID, OTHER ==
[~2021-07-04] VITALS: Ht 170.2 cm; Wt 77.1 kg
[2021-07-04] MEDS ORDERED: SODIUM CHLORIDE 0.9% 1,000 ML IV ONE (13:00)
[2021-07-04] MEDS ORDERED: MORPHINE SULFATE 4 MG/ML SYR/VIAL IV ONE (13:00)
[2021-07-04] MEDS ORDERED: ONDANSETRON HCL 4 MG/2 ML VIAL IV ONE ×2 (13:00→18:00)
[2021-07-04 13:48] LABS: Hemoglobin 11.4 g/dL (12.2-16.2); Lymphocytes # (auto) 0.6 10 ^3/uL (0.4-5.4); Monocytes # (auto) 0.5 10 ^3/uL (0-1.3); Neutrophils # (auto) 9.8 10 ^3/uL (1.6-8.6)
[2021-07-04 13:54] LABS: Basophils # (auto) 0 10 ^3/uL (0-0.2); Basophils % (auto) 0.3 % (0.0-2.0); Eosinophils # (auto) 0 10 ^3/uL (0-0.8); Eosinophils % (auto) 0.5 % (0.0-7.0); Lymphocytes % (auto) 5.8 % (10.0-50.0); Mean Corpuscular Hemoglobin 22.2 pg (28.0-32.0); Mean Corpuscular Hgb Conc. 31.7 g/dL (32.0-36.0); Mean Corpuscular Volume 70.1 fL (80.0-100.0); Monocytes % (auto) 4.6 % (0.0-12.0); Neutrophils % (auto) 88.8 % (37.0-80.0); Red Blood Cells 5.13 10^6/uL (4.0-5.20)
[2021-07-04 14:22] LABS: Calcium 9.7 mg/dL (8.5-10.1); Potassium 4.9 mmol/L (3.5-5.1)
[2021-07-04 14:48] LABS: Albumin 3.8 g/dL (3.4-5.0); BUN/Creatinine Ratio 22.1; Bilirubin, Total 0.4 mg/dL (0.2-1.0); Total Protein 8.2 g/dL (6.4-8.2)
[2021-07-04] MEDS ORDERED: cefTRIAXone 1GM/50ML D5W 50 ML IV ONE (16:30)
[2021-07-04] MEDS ORDERED: metroNIDAZOLE 500MG/100ML 100 ML IV ONE (16:30)
[2021-07-04 17:09] LABS: INR 0.99 (0.9-1.15); Partial Thromboplastin Time 24.3 sec (23.6-33.0)
[2021-07-04 17:28] LABS: Lactic Acid w/Reflex 2.1 mmol/L (0.4-2.0)
[2021-07-04] MEDS ORDERED: CLINDAMYCIN 300MG IV 50 ML IV ONE (17:45)
[2021-07-04] MEDS ORDERED: HYDROmorphone HCL 2 MG/ML VL IV ONE (17:45)
[2021-07-04] MEDS ORDERED: ONDANSETRON HCL 4 MG/2 ML VIAL ONE (17:51)
[2021-07-05] MEDS ORDERED: ONDANSETRON HCL 4 MG/2 ML VIAL IV ONE
[2021-07-05] MEDS ORDERED: HYDROmorphone HCL 2 MG/ML VL IV ONE
[2021-07-05 01:45] VITALS: BP 173/79
[2021-07-05 01:51] LABS: Urine Bacteria NONE SEEN /hpf (None Seen); Urine Blood TRACE /uL (Negative); Urine Mucus FEW (None Seen); Urine Specific Gravity 1.025 (1.001-1.035); Urine WBC 6 /hpf (0 - 5)
== END 2021-07-05 02:06 | disposition short-term general hospital (02) ==
LOC: ER 12:18 → EDBD 12:18 → ER 07-05 02:06
DX: K63.1 Perforation of intestine (nontraumatic) (principal); I10 Essential (primary) hypertension; Z86.73 Personal history of transient ischemic attack (TIA), and cerebral infarction without residual deficits; Z90.89 Acquired absence of other organs; Z90.710 Acquired absence of both cervix and uterus; Z20.822 Contact with and (suspected) exposure to COVID-19
CPT/HCPCS: 36415; 71045; 74176; 80053; 81001; 83605; 85025; 85610; 85730; 87040; 87426; 93005; 96361; 96365; 96366; 96368; 96375; 96376; 99285; J0696; J1170; J2270; J2405; J3490; J7030

== ENCOUNTER → 2021-08-11 | Outpatient (CLI) | payer OTHER ==
[2021-08-11 16:39] LABS: Basophils # (auto) 0 10 ^3/uL (0-0.2); Basophils % (auto) 0.2 % (0.0-2.0); Eosinophils # (auto) 0 10 ^3/uL (0-0.8); Eosinophils % (auto) 0.2 % (0.0-7.0); Hematocrit 26.6 % (36.0-46.0); Hemoglobin 8.3 g/dL (12.2-16.2); Lymphocytes # (auto) 1.5 10 ^3/uL (0.4-5.4); Lymphocytes % (auto) 11.6 % (10.0-50.0); Mean Corpuscular Hemoglobin 22.1 pg (28.0-32.0); Mean Corpuscular Hgb Conc. 31.1 g/dL (32.0-36.0); Mean Corpuscular Volume 71.2 fL (80.0-100.0); Monocytes # (auto) 0.9 10 ^3/uL (0-1.3); Monocytes % (auto) 6.5 % (0.0-12.0); Neutrophils # (auto) 10.8 10 ^3/uL (1.6-8.6); Neutrophils % (auto) 81.5 % (37.0-80.0); Red Blood Cells 3.74 10^6/uL (4.0-5.20); White Blood Cell 13.3 10^3/uL (4.4-10.8)
[2021-08-11 16:42] LABS: Red Cell Distribution Width 20.4 % (11.8-14.3)
[2021-08-11 17:27] LABS: Albumin 2.3 g/dL (3.4-5.0); Calcium 8.4 mg/dL (8.5-10.1); Potassium 3.2 mmol/L (3.5-5.1)
[2021-08-11 17:31] LABS: BUN/Creatinine Ratio 14.9; Bilirubin, Total 0.6 mg/dL (0.2-1.0); Total Protein 7.6 g/dL (6.4-8.2)
== END | disposition home or self-care (01) ==
LOC: LAB 16:12
PROVIDERS: ATTEND Internal Medicine
DX: R50.9 Fever, unspecified (principal)
CPT/HCPCS: 36415; 80053; 85025; 87040; 87086

== ENCOUNTER 2021-08-28 01:10 | Inpatient (IN) | payer OTHER ==
[~2021-08-28] VITALS: Ht 167.6 cm; Wt 65.2 kg
[2021-08-28] MEDS ORDERED: IOHEXOL 300 MG/ML 100ML BOTTLE IJ ONE (01:39)
[2021-08-28] MEDS ORDERED: PIPERACILLIN-TAZO 4.5GM 100 ML IV ONE ×2 (01:45→05:30)
[2021-08-28] MEDS ORDERED: MORPHINE SULFATE INJECTION 2 MG/ML SYRG IM ONE (01:45)
[2021-08-28] MEDS ORDERED: SODIUM CHLORIDE 0.9% 2,000 ML IV ONE (01:45)
[2021-08-28 02:53] LABS: Basophils # (auto) 0 10 ^3/uL (0-0.2); Basophils % (auto) 0.1 % (0.0-2.0); Eosinophils # (auto) 0 10 ^3/uL (0-0.8); Eosinophils % (auto) 0.1 % (0.0-7.0); Hemoglobin 7.6 g/dL (12.2-16.2); Lymphocytes # (auto) 0.6 10 ^3/uL (0.4-5.4); Monocytes # (auto) 1.1 10 ^3/uL (0-1.3)
[2021-08-28 02:54] LABS: Hematocrit 24.9 % (36.0-46.0); Lymphocytes % (auto) 3.1 % (10.0-50.0); Mean Corpuscular Hemoglobin 21.4 pg (28.0-32.0); Mean Corpuscular Hgb Conc. 30.4 g/dL (32.0-36.0); Mean Corpuscular Volume 70.3 fL (80.0-100.0); Monocytes % (auto) 6.4 % (0.0-12.0); Neutrophils # (auto) 16.2 10 ^3/uL (1.6-8.6); Neutrophils % (auto) 90.3 % (37.0-80.0); Red Blood Cells 3.55 10^6/uL (4.0-5.20); Red Cell Distribution Width 19.9 % (11.8-14.3)
[2021-08-28 02:59] LABS: INR 1.5 (0.9-1.15); Partial Thromboplastin Time 41.4 sec (23.6-33.0)
[2021-08-28 03:16] LABS: Albumin 1.5 g/dL (3.4-5.0); Calcium 7.5 mg/dL (8.5-10.1); Magnesium 2.8 mg/dL (1.6-2.6); Potassium 3.8 mmol/L (3.5-5.1)
[2021-08-28 03:31] LABS: BUN/Creatinine Ratio 15.6; Bilirubin, Total 0.6 mg/dL (0.2-1.0); Total Protein 6.4 g/dL (6.4-8.2)
[2021-08-28] MEDS ORDERED: MORPHINE SULFATE 4 MG/ML SYR/VIAL IV ONE (04:30)
[2021-08-28] MEDS ORDERED: ONDANSETRON HCL 4 MG/2 ML VIAL IV ONE ×2 (04:30→10:15)
[2021-08-28] MEDS ORDERED: fentaNYL CITRATE 100 MCG/2 ML VL IV ONE (05:15)
[2021-08-28] MEDS ORDERED: fentaNYL CITRATE 100 MCG/2 ML VL ONE (05:17)
[2021-08-28] MEDS ORDERED: VANCOMYCIN 1,500 MG in D5W 5% 250 ML IV STA (05:27)
[2021-08-28] MEDS ORDERED: VANCOMYCIN 1GM/250ML 250 ML IV ONE (06:04)
[2021-08-28] MEDS ORDERED: metroNIDAZOLE 500MG/100ML 100 ML IV ONE (10:00)
[2021-08-28] MEDS ORDERED: cefTRIAXone 1GM/50ML D5W 50 ML IV ONE (10:00)
[2021-08-28] MEDS ORDERED: SODIUM CHLORIDE 0.9% 1,000 ML IV ONE (10:15)
[2021-08-28 11:29] LABS: Urine WBC None Seen /hpf (0 - 5)
[2021-08-28] MEDS: MORPHINE SULFATE INJECTION 2 MG/ML SYRG IV ONE (11:30)
[2021-08-28] MEDS ORDERED: MORPHINE SULFATE INJECTION 2 MG/ML SYRG IV ONE (11:30)
[2021-08-28 12:20] LABS: Urine Bacteria NONE SEEN /hpf (None Seen); Urine Blood Negative /uL (Negative); Urine Mucus FEW (None Seen)
[2021-08-28 12:32] LABS: Urine Specific Gravity > 1.050 (1.001-1.035)
[2021-08-28] MEDS ORDERED: HYDROmorphone HCL 2 MG/ML VL IV ONE (17:15)
[2021-08-28] MEDS ORDERED: NOREPINEPHRINE 8 MG/250ML KIT 250 ML IV SCH (17:45)
[2021-08-28] MEDS: metroNIDAZOLE 500MG/100ML 100 ML IV SCH (22:00)
[2021-08-29] MEDS: SODIUM CHLORIDE 0.9% 1,000 ML IV SCH ×3 (00:15→18:01)
[2021-08-29] MEDS ORDERED: HYDROmorphone HCL 2 MG/ML VL IV ONE ×2 (00:15→05:45)
[2021-08-29] MEDS: metroNIDAZOLE 500MG/100ML 100 ML IV SCH ×3 (08:56→22:24)
[2021-08-29 09:41] LABS: Basophils # (auto) 0 10 ^3/uL (0-0.2); Eosinophils # (auto) 0 10 ^3/uL (0-0.8); Lymphocytes # (auto) 0.5 10 ^3/uL (0.4-5.4); Mean Corpuscular Hgb Conc. 30.5 g/dL (32.0-36.0); Monocytes # (auto) 0.6 10 ^3/uL (0-1.3); Neutrophils # (auto) 7.6 10 ^3/uL (1.6-8.6); White Blood Cell 8.7 10^3/uL (4.4-10.8)
[2021-08-29 09:44] LABS: Basophils % (auto) 0.1 % (0.0-2.0); Eosinophils % (auto) 0.3 % (0.0-7.0); Hematocrit 21.7 % (36.0-46.0); Monocytes % (auto) 6.4 % (0.0-12.0); Neutrophils % (auto) 87.2 % (37.0-80.0); Nucleated Red Blood Cells % 0.1 %; Red Blood Cells 3.03 10^6/uL (4.0-5.20)
[2021-08-29 09:47] LABS: Albumin 1.3 g/dL (3.4-5.0); Calcium 7.4 mg/dL (8.5-10.1); Potassium 3.3 mmol/L (3.5-5.1)
[2021-08-29 09:49] LABS: BUN/Creatinine Ratio 16.7; Bilirubin, Total 0.2 mg/dL (0.2-1.0); Total Protein 5.4 g/dL (6.4-8.2)
[2021-08-29] MEDS: cefTRIAXone 1GM/50ML D5W 50 ML IV SCH (10:21)
[2021-08-29 10:44] LABS: Hemoglobin 6.6 g/dL (12.2-16.2)
[2021-08-29 10:45] LABS: Mean Corpuscular Hemoglobin 21.8 pg (28.0-32.0); Mean Corpuscular Volume 71.7 fL (80.0-100.0); Red Cell Distribution Width 19.6 % (11.8-14.3)
[2021-08-29 12:46] VITALS: BP 103/54
[2021-08-29 13:01] VITALS: BP 115/61
[2021-08-29] MEDS ORDERED: ONDANSETRON HCL 4 MG/2 ML VIAL IV ONE (14:15)
[2021-08-29] MEDS ORDERED: NITROGLYCERIN 0.4 MG SL TAB SL PRN ×2 (14:15→17:15)
[2021-08-29] MEDS ORDERED: MORPHINE SULFATE INJECTION 2 MG/ML SYRG IV PRN ×3 (14:15→17:15)
[2021-08-29] MEDS: HYDROmorphone HCL 2 MG/ML VL IV PRN ×2 (14:59→22:31)
[2021-08-29] MEDS ORDERED: PHYTONADIONE (VIT K)10 MG/ML 1ML VIAL SUBCUT ONE (15:15)
[2021-08-29 15:23] VITALS: BP 109/50
[2021-08-29] MEDS ORDERED: PANTOPRAZOLE 40 MG/10 ML VIAL INJ IV ONE (17:15)
[2021-08-29] MEDS ORDERED: BUDESONIDE (INHALATION) 0.5 MG/2 ML NEB NEB ONE (17:15)
[2021-08-29] MEDS ORDERED: IPRATROPIUM BROM 0.5 MG/2.5ML INH SOL NEB ONE (17:15)
[2021-08-29] MEDS ORDERED: ALBUTEROL SULF 2.5 MG/0.5ML(0.5%) NEB SOLN NEB PRN (17:15)
[2021-08-29] MEDS ORDERED: HYDROcodone-ACET 5/325MG TAB PO PRN (17:15)
[2021-08-29] MEDS ORDERED: DOCUSATE SOD 100 MG CAP PO PRN (17:15)
[2021-08-29] MEDS ORDERED: ALUM & MAG HYDROX-SIMETH LIQ(MAALOX) 30 ML PO PRN (17:15)
[2021-08-29] MEDS ORDERED: IPRATROPIUM BROM 0.5 MG/2.5ML INH SOL NEB SCH (18:00)
[2021-08-29 18:19] VITALS: BP 98/48
[2021-08-29 18:26] LABS: Cholesterol 61 mg/dL (< 200); HDL Cholesterol 12 mg/dL (40-59); LDL Cholesterol 39 mg/dL (< 100); Triglycerides 89 mg/dL (< 150)
[2021-08-29] MEDS ORDERED: TEMAZEPAM 15 MG CAP PO PRN (22:00)
[2021-08-29] MEDS ORDERED: BUDESONIDE (INHALATION) 0.5 MG/2 ML NEB NEB SCH (22:00)
[2021-08-29] MEDS: ATORVASTATIN 20 MG TAB PO SCH (22:25)
[2021-08-30] MEDS ORDERED: PHYTONADIONE (VIT K)10 MG/ML 1ML VIAL SUBCUT ONE
[2021-08-30] MEDS: SODIUM CHLORIDE 0.9% 1,000 ML IV SCH ×4 (00:15→20:40)
[2021-08-30] MEDS: HYDROmorphone HCL 2 MG/ML VL IV PRN ×3 (02:38→19:53)
[2021-08-30] MEDS: ONDANSETRON HCL 4 MG/2 ML VIAL IV PRN (02:38)
[2021-08-30 03:40] LABS: Urine Bacteria NONE SEEN /hpf (None Seen); Urine Blood Negative /uL (Negative); Urine Mucus FEW (None Seen); Urine Specific Gravity 1.017 (1.001-1.035); Urine WBC 9 /hpf (0 - 5)
[2021-08-30 03:58] LABS: Amphetamine Screen, Urine NEGATIVE (NEGATIVE); Barbiturate Scree,Urine NEGATIVE (NEGATIVE); Benzodiazephine Screen, Urine NEGATIVE (NEGATIVE); Cannabinoid Screen, Urine POSITIVE (NEGATIVE); Cocaine Screen, Urine NEGATIVE (NEGATIVE); Phencyclidine Screen, Urine NEGATIVE (NEGATIVE)
[2021-08-30 04:06] LABS: Opiate Scree,Urine NEGATIVE (NEGATIVE)
[2021-08-30] MEDS: metroNIDAZOLE 500MG/100ML 100 ML IV SCH ×3 (05:00→21:35)
[2021-08-30 06:14] VITALS: BP 130/62
[2021-08-30 07:15] LABS: Basophils # (auto) 0.1 10 ^3/uL (0-0.2); Eosinophils # (auto) 0.3 10 ^3/uL (0-0.8); Eosinophils % (auto) 3.8 % (0.0-7.0); Hematocrit 26.2 % (36.0-46.0)
[2021-08-30 07:20] LABS: INR 1.18 (0.9-1.15); Partial Thromboplastin Time 41.6 sec (23.6-33.0)
[2021-08-30 07:22] LABS: Potassium 3.7 mmol/L (3.5-5.1)
[2021-08-30 07:23] LABS: Basophils % (auto) 0.7 % (0.0-2.0); Hemoglobin 8.2 g/dL (12.2-16.2); Lymphocytes # (auto) 0.7 10 ^3/uL (0.4-5.4); Lymphocytes % (auto) 8.1 % (10.0-50.0); Mean Corpuscular Hemoglobin 23.6 pg (28.0-32.0); Mean Corpuscular Hgb Conc. 31.5 g/dL (32.0-36.0); Mean Corpuscular Volume 74.8 fL (80.0-100.0); Monocytes # (auto) 0.5 10 ^3/uL (0-1.3); Monocytes % (auto) 5.9 % (0.0-12.0); Neutrophils # (auto) 7.5 10 ^3/uL (1.6-8.6); Neutrophils % (auto) 81.5 % (37.0-80.0); Nucleated Red Blood Cells % 0.1 %; Red Cell Distribution Width 22.7 % (11.8-14.3); White Blood Cell 9.2 10^3/uL (4.4-10.8)
[2021-08-30 07:35] LABS: Albumin 1.3 g/dL (3.4-5.0); BUN/Creatinine Ratio 18.2; Bilirubin, Total 0.3 mg/dL (0.2-1.0); Calcium 7.5 mg/dL (8.5-10.1); Magnesium 2.7 mg/dL (1.6-2.6); Phosphorus 2.4 mg/dL (2.5-4.90); Total Protein 5.5 g/dL (6.4-8.2)
[2021-08-30 09:00] VITALS: BP 123/54
[2021-08-30] MEDS: PANTOPRAZOLE 40 MG/10 ML VIAL INJ IV SCH (09:00)
[2021-08-30] MEDS: cefTRIAXone 1GM/50ML D5W 50 ML IV SCH (09:03)
[2021-08-30] MEDS ORDERED: SUCCINYLCHOLINE CHLORIDE 20 MG/ML 10ML VIAL IV ONE (09:36)
[2021-08-30] MEDS ORDERED: fentaNYL CITRATE 5 ML ONE (09:39)
[2021-08-30] MEDS ORDERED: MIDAZOLAM HCL 2MG/2ML 2ml VIAL (1mg/ml) ONE (09:39)
[2021-08-30] MEDS ORDERED: ROCURONIUM 10MG/ML 10ML VIAL IV ONE (09:43)
[2021-08-30] MEDS ORDERED: ALBUMIN 5% 500 ML IV ONE (10:12)
[2021-08-30] MEDS ORDERED: CALCIUM CHL(10%) 100MG/ML 10ML VIAL IV ONE (10:34)
[2021-08-30] MEDS ORDERED: ONDANSETRON HCL 4 MG/2 ML VIAL ONE (10:42)
[2021-08-30] MEDS ORDERED: PROPOFOL 10 MG/ML 20 ML IV ONE (10:42)
[2021-08-30] MEDS ORDERED: GLYCOPYRROLATE 0.2 MG/ML 1ML VIAL ONE (10:48)
[2021-08-30] MEDS ORDERED: NEOSTIGMINE 1 MG/ML INJ (10mg/10ML VIAL) ONE (10:48)
[2021-08-30] MEDS ORDERED: METOCLOPRAMIDE HCL 5MG/ml INJ 2ml VIAL IV PRN (11:15)
[2021-08-30] MEDS ORDERED: HYDROmorphone HCL 2 MG/ML VL IV PRN ×2 (11:15)
[2021-08-30] MEDS ORDERED: TPN PER PHARMACY 0 ML IV SCH (14:15)
[2021-08-30] MEDS ORDERED: SODIUM PHOSP 20MEQ(15MMOL) IN NS 100 ML IV ONE (16:00)
[2021-08-30] MEDS ORDERED: LIDOCAINE 1% (LOCAL ANESTH.) PF 5ml SDV ID ONE (17:15)
[2021-08-30 17:28] VITALS: BP 138/69
[2021-08-30] MEDS ORDERED: PPN PER PHARMACY IV NR ×8 (20:00)
[2021-08-30 21:17] VITALS: BP 116/63
[2021-08-30] MEDS: ATORVASTATIN 20 MG TAB PO SCH (21:29)
[2021-08-30] MEDS: SODIUM CHLOR 0.9% PF (SALINE LOCK) 10ML VIAL/SYR IV SCH (21:35)
[2021-08-31] MEDS ORDERED: DEXTROSE (50%) 50ML SYRG IV SCH
[2021-08-31] MEDS: ACCU-CHEK COMFORT CURVE STRIP VI SCH ×4 (00:57→17:41)
[2021-08-31] MEDS: InsuLIN REG 1unit/0.01ml Soln (100units/ml) SC SCH ×4 (00:57→17:40)
[2021-08-31] MEDS: HYDROmorphone HCL 2 MG/ML VL IV PRN ×4 (00:58→22:04)
[2021-08-31] MEDS: metroNIDAZOLE 500MG/100ML 100 ML IV SCH ×3 (05:47→21:21)
[2021-08-31] MEDS: SODIUM CHLORIDE 0.9% 1,000 ML IV SCH ×2 (05:50→22:00)
[2021-08-31 06:00] VITALS: BP 136/72
[2021-08-31 06:28] LABS: Basophils # (auto) 0 10 ^3/uL (0-0.2); Basophils % (auto) 0.4 % (0.0-2.0); Eosinophils # (auto) 0 10 ^3/uL (0-0.8); Eosinophils % (auto) 0.8 % (0.0-7.0); Hematocrit 24.6 % (36.0-46.0); Hemoglobin 7.8 g/dL (12.2-16.2); Lymphocytes # (auto) 0.9 10 ^3/uL (0.4-5.4); Lymphocytes % (auto) 14.7 % (10.0-50.0); Mean Corpuscular Hemoglobin 23.7 pg (28.0-32.0); Mean Corpuscular Hgb Conc. 31.6 g/dL (32.0-36.0); Mean Corpuscular Volume 75.2 fL (80.0-100.0); Monocytes # (auto) 0.5 10 ^3/uL (0-1.3); Monocytes % (auto) 7.6 % (0.0-12.0); Neutrophils # (auto) 4.5 10 ^3/uL (1.6-8.6); Neutrophils % (auto) 76.5 % (37.0-80.0); Red Blood Cells 3.27 10^6/uL (4.0-5.20); Red Cell Distribution Width 22.9 % (11.8-14.3); White Blood Cell 5.9 10^3/uL (4.4-10.8)
[2021-08-31 07:02] LABS: Albumin 1.6 g/dL (3.4-5.0); BUN/Creatinine Ratio 7.8; Bilirubin, Total 0.2 mg/dL (0.2-1.0); Calcium 7.4 mg/dL (8.5-10.1); Magnesium 1.6 mg/dL (1.6-2.6); Phosphorus 6.5 mg/dL (2.5-4.90); Pre Albumin 4.8 mg/dL (20.0-40.0); Total Protein 5.2 g/dL (6.4-8.2)
[2021-08-31 09:00] VITALS: BP 141/72
[2021-08-31] MEDS: SODIUM CHLOR 0.9% PF (SALINE LOCK) 10ML VIAL/SYR IV SCH ×2 (09:44→21:22)
[2021-08-31] MEDS: cefTRIAXone 1GM/50ML D5W 50 ML IV SCH (09:44)
[2021-08-31] MEDS: PANTOPRAZOLE 40 MG/10 ML VIAL INJ IV SCH (09:44)
[2021-08-31] MEDS ORDERED: cefTRIAXone 1GM/50ML D5W 50 ML IV ONE (09:44)
[2021-08-31] MEDS: ONDANSETRON HCL 4 MG/2 ML VIAL IV PRN (12:34)
[2021-08-31 13:15] VITALS: BP 145/69
[2021-08-31 17:00] VITALS: BP 133/74
[2021-08-31] MEDS ORDERED: TPN PER PHARMACY IV NR ×5 (20:00)
[2021-08-31] MEDS: ATORVASTATIN 20 MG TAB PO SCH (21:21)
[2021-08-31 22:00] VITALS: BP 132/69
[2021-09-01] MEDS: ACCU-CHEK COMFORT CURVE STRIP VI SCH ×4 (00:45→17:46)
[2021-09-01] MEDS: InsuLIN REG 1unit/0.01ml Soln (100units/ml) SC SCH ×4 (00:57→17:46)
[2021-09-01 04:15] VITALS: BP 136/69
[2021-09-01] MEDS: metroNIDAZOLE 500MG/100ML 100 ML IV SCH (06:12)
[2021-09-01] MEDS: ONDANSETRON HCL 4 MG/2 ML VIAL IV PRN ×3 (06:23→22:25)
[2021-09-01] MEDS: HYDROmorphone HCL 2 MG/ML VL IV PRN ×4 (06:23→22:25)
[2021-09-01 07:23] LABS: Basophils # (auto) 0 10 ^3/uL (0-0.2); Eosinophils # (auto) 0 10 ^3/uL (0-0.8); Lymphocytes # (auto) 0.8 10 ^3/uL (0.4-5.4); Neutrophils # (auto) 4.3 10 ^3/uL (1.6-8.6); White Blood Cell 5.6 10^3/uL (4.4-10.8)
[2021-09-01 07:26] LABS: Basophils % (auto) 0.4 % (0.0-2.0); Eosinophils % (auto) 0.4 % (0.0-7.0); Hematocrit 26.6 % (36.0-46.0); Hemoglobin 8.6 g/dL (12.2-16.2); Lymphocytes % (auto) 14.3 % (10.0-50.0); Mean Corpuscular Hgb Conc. 32.2 g/dL (32.0-36.0); Monocytes # (auto) 0.4 10 ^3/uL (0-1.3); Neutrophils % (auto) 76.9 % (37.0-80.0)
[2021-09-01 07:35] LABS: Mean Corpuscular Hemoglobin 23.8 pg (28.0-32.0); Mean Corpuscular Volume 73.9 fL (80.0-100.0); Red Cell Distribution Width 23.2 % (11.8-14.3)
[2021-09-01 08:15] VITALS: BP 137/74
[2021-09-01 08:16] LABS: Albumin 1.7 g/dL (3.4-5.0); BUN/Creatinine Ratio 6.8; Bilirubin, Total 0.2 mg/dL (0.2-1.0); Calcium 7.4 mg/dL (8.5-10.1); Magnesium 2.5 mg/dL (1.6-2.6); Phosphorus 1.8 mg/dL (2.5-4.90); Total Protein 5.4 g/dL (6.4-8.2)
[2021-09-01 08:38] LABS: Potassium 2.9 mmol/L (3.5-5.1)
[2021-09-01] MEDS ORDERED: SOD CHL 0.9%/ KCL 40MEQ 1,000 ML IV SCH (09:15)
[2021-09-01] MEDS: SODIUM CHLOR 0.9% PF (SALINE LOCK) 10ML VIAL/SYR IV SCH (09:21)
[2021-09-01] MEDS: SODIUM CHLORIDE 0.9% 1,000 ML IV SCH (09:30)
[2021-09-01] MEDS ORDERED: cefTRIAXone 1GM/50ML D5W 50 ML IV ONE (09:31)
[2021-09-01] MEDS: PANTOPRAZOLE 40 MG/10 ML VIAL INJ IV SCH (09:43)
[2021-09-01] MEDS: cefTRIAXone 1GM/50ML D5W 50 ML IV SCH (09:43)
[2021-09-01] MEDS: POTASSIUM CHL 10MEQ/50ML 50 ML IV SCH ×4 (10:58→14:13)
[2021-09-01] MEDS ORDERED: PIPERACILLIN-TAZOB 3.375GM 100 ML IV ONE (11:30)
[2021-09-01 12:00] VITALS: BP 129/70
[2021-09-01] MEDS ORDERED: POTASSIUM PHOSPHATE 22 MEQ in SODIUM CHL 0.9% 100 ML IV ONE (14:00)
[2021-09-01] MEDS ORDERED: GASTROGRAFIN 120 ML SOL ONE ×3 (14:52→15:23)
[2021-09-01] MEDS ORDERED: GASTROGRAFIN 30 ML SOL ONE (15:33)
[2021-09-01 16:29] VITALS: BP 150/74
[2021-09-01 21:00] VITALS: BP 131/60
[2021-09-01] MEDS: TPN PER PHARMACY IV NR ×12 (21:00→21:05)
[2021-09-01] MEDS: PIPERACILLIN-TAZOB 3.375GM 100 ML IV SCH (21:32)
[2021-09-02] MEDS: InsuLIN REG 1unit/0.01ml Soln (100units/ml) SC SCH ×4 (00:52→18:00)
[2021-09-02] MEDS: SODIUM CHLOR 0.9% PF (SALINE LOCK) 10ML VIAL/SYR IV SCH ×3 (00:52→21:24)
[2021-09-02] MEDS: ACCU-CHEK COMFORT CURVE STRIP VI SCH ×4 (01:08→18:26)
[2021-09-02] MEDS: SODIUM CHLORIDE 0.9% 1,000 ML IV SCH ×3 (01:10→21:25)
[2021-09-02 05:00] VITALS: BP 141/72
[2021-09-02] MEDS: HYDROmorphone HCL 2 MG/ML VL IV PRN ×4 (06:12→22:42)
[2021-09-02] MEDS: ONDANSETRON HCL 4 MG/2 ML VIAL IV PRN ×3 (06:13→22:43)
[2021-09-02 07:17] LABS: Basophils # (auto) 0 10 ^3/uL (0-0.2); Basophils % (auto) 0.2 % (0.0-2.0); Eosinophils # (auto) 0 10 ^3/uL (0-0.8); Eosinophils % (auto) 0.4 % (0.0-7.0); Monocytes # (auto) 0.4 10 ^3/uL (0-1.3); Neutrophils # (auto) 5.9 10 ^3/uL (1.6-8.6); Nucleated Red Blood Cells % 0.1 %; Red Blood Cells 3.59 10^6/uL (4.0-5.20)
[2021-09-02 07:23] LABS: Hematocrit 26.4 % (36.0-46.0); Hemoglobin 8.4 g/dL (12.2-16.2); Lymphocytes # (auto) 0.6 10 ^3/uL (0.4-5.4); Lymphocytes % (auto) 8.9 % (10.0-50.0); Mean Corpuscular Hgb Conc. 31.7 g/dL (32.0-36.0); Monocytes % (auto) 6.3 % (0.0-12.0); Neutrophils % (auto) 84.2 % (37.0-80.0)
[2021-09-02 07:31] LABS: Mean Corpuscular Hemoglobin 23.4 pg (28.0-32.0); Mean Corpuscular Volume 73.6 fL (80.0-100.0); Red Cell Distribution Width 23.9 % (11.8-14.3)
[2021-09-02 07:37] LABS: Potassium 3.1 mmol/L (3.5-5.1)
[2021-09-02 07:44] LABS: Albumin 1.7 g/dL (3.4-5.0); BUN/Creatinine Ratio 14.3; Bilirubin, Total 0.2 mg/dL (0.2-1.0); Calcium 7.6 mg/dL (8.5-10.1); Magnesium 2.1 mg/dL (1.6-2.6); Phosphorus 1.7 mg/dL (2.5-4.90); Total Protein 5.6 g/dL (6.4-8.2)
[2021-09-02 09:00] VITALS: BP 118/62
[2021-09-02] MEDS ORDERED: POTASSIUM PHOSPHATE 44 MEQ in D5W 5% 250 ML IV ONE (09:00)
[2021-09-02] MEDS: PANTOPRAZOLE 40 MG/10 ML VIAL INJ IV SCH (10:41)
[2021-09-02] MEDS: ENOXAPARIN SOD 30 MG/0.3 ML SYRINGE SC SCH (10:42)
[2021-09-02] MEDS: PIPERACILLIN-TAZOB 3.375GM 100 ML IV SCH ×3 (12:00→21:24)
[2021-09-02] MEDS ORDERED: FLUCONAZOLE 200MG/100ML 100 ML IV ONE (12:00)
[2021-09-02 12:58] VITALS: BP 137/74
[2021-09-02 16:49] VITALS: BP 137/70
[2021-09-02] MEDS: TPN PER PHARMACY IV NR ×9 (21:23)
[2021-09-02 22:00] VITALS: BP 132/74
[2021-09-03] MEDS: ACCU-CHEK COMFORT CURVE STRIP VI SCH ×4 (00:37→17:43)
[2021-09-03] MEDS: InsuLIN REG 1unit/0.01ml Soln (100units/ml) SC SCH ×4 (00:39→17:42)
[2021-09-03] MEDS: PIPERACILLIN-TAZOB 3.375GM 100 ML IV SCH ×3 (04:00→21:33)
[2021-09-03 05:00] VITALS: BP 155/82
[2021-09-03] MEDS: ONDANSETRON HCL 4 MG/2 ML VIAL IV PRN ×3 (05:40→20:02)
[2021-09-03] MEDS: HYDROmorphone HCL 2 MG/ML VL IV PRN ×3 (05:51→20:01)
[2021-09-03 07:47] LABS: Potassium 3.3 mmol/L (3.5-5.1)
[2021-09-03 07:53] LABS: Basophils # (auto) 0 10 ^3/uL (0-0.2); Basophils % (auto) 0.3 % (0.0-2.0); Eosinophils # (auto) 0 10 ^3/uL (0-0.8); Eosinophils % (auto) 0.7 % (0.0-7.0); Hematocrit 26.6 % (36.0-46.0); Hemoglobin 8.4 g/dL (12.2-16.2); Lymphocytes # (auto) 0.8 10 ^3/uL (0.4-5.4); Lymphocytes % (auto) 14.2 % (10.0-50.0); Mean Corpuscular Hgb Conc. 31.4 g/dL (32.0-36.0); Monocytes # (auto) 0.4 10 ^3/uL (0-1.3); Monocytes % (auto) 7.8 % (0.0-12.0); Neutrophils # (auto) 4.2 10 ^3/uL (1.6-8.6); Nucleated Red Blood Cells % 0.1 %; Red Blood Cells 3.58 10^6/uL (4.0-5.20); White Blood Cell 5.5 10^3/uL (4.4-10.8)
[2021-09-03 07:56] LABS: Mean Corpuscular Hemoglobin 23.4 pg (28.0-32.0); Mean Corpuscular Volume 74.4 fL (80.0-100.0); Red Cell Distribution Width 24.6 % (11.8-14.3)
[2021-09-03 08:15] LABS: Albumin 1.7 g/dL (3.4-5.0); BUN/Creatinine Ratio 21.3; Bilirubin, Total 0.2 mg/dL (0.2-1.0); Calcium 7.8 mg/dL (8.5-10.1); Magnesium 1.5 mg/dL (1.6-2.6); Phosphorus 2.4 mg/dL (2.5-4.90)
[2021-09-03 09:00] VITALS: BP 158/76
[2021-09-03] MEDS: PANTOPRAZOLE 40 MG/10 ML VIAL INJ IV SCH (10:12)
[2021-09-03] MEDS: FLUCONAZOLE 200MG/100ML 100 ML IV SCH (10:12)
[2021-09-03] MEDS: ENOXAPARIN SOD 30 MG/0.3 ML SYRINGE SC SCH (10:12)
[2021-09-03] MEDS: SODIUM CHLOR 0.9% PF (SALINE LOCK) 10ML VIAL/SYR IV SCH ×2 (10:12→22:00)
[2021-09-03] MEDS ORDERED: MAGNESIUM SULFATE 1GM/100ML 100 ML IV ONE (11:15)
[2021-09-03] MEDS ORDERED: POTASSIUM PHOSPHATE 22 MEQ in SODIUM CHL 0.9% 100 ML IV ONE (12:30)
[2021-09-03 13:00] VITALS: BP 151/72
[2021-09-03 17:00] VITALS: BP 135/71
[2021-09-03] MEDS: TPN PER PHARMACY IV NR ×16 (19:46→20:08)
[2021-09-03] MEDS: SODIUM CHLORIDE 0.9% 1,000 ML IV SCH (21:47)
[2021-09-03 22:00] VITALS: BP 135/67
[2021-09-04] MEDS: InsuLIN REG 1unit/0.01ml Soln (100units/ml) SC SCH ×4 (01:00→18:45)
[2021-09-04] MEDS: PIPERACILLIN-TAZOB 3.375GM 100 ML IV SCH ×3 (04:41→20:48)
[2021-09-04] MEDS: ONDANSETRON HCL 4 MG/2 ML VIAL IV PRN ×5 (04:42→22:33)
[2021-09-04 05:00] VITALS: BP 158/78
[2021-09-04] MEDS: HYDROmorphone HCL 2 MG/ML VL IV PRN ×5 (05:20→22:33)
[2021-09-04] MEDS: ACCU-CHEK COMFORT CURVE STRIP VI SCH ×2 (05:21)
[2021-09-04 06:55] LABS: Basophils # (auto) 0 10 ^3/uL (0-0.2); Basophils % (auto) 0.2 % (0.0-2.0); Eosinophils # (auto) 0 10 ^3/uL (0-0.8); Hematocrit 27.1 % (36.0-46.0); Hemoglobin 8.5 g/dL (12.2-16.2); Monocytes # (auto) 0.4 10 ^3/uL (0-1.3); Neutrophils # (auto) 4.3 10 ^3/uL (1.6-8.6); Red Blood Cells 3.61 10^6/uL (4.0-5.20)
[2021-09-04 06:58] LABS: Eosinophils % (auto) 0.7 % (0.0-7.0); Lymphocytes # (auto) 0.7 10 ^3/uL (0.4-5.4); Lymphocytes % (auto) 13.5 % (10.0-50.0); Mean Corpuscular Hgb Conc. 31.4 g/dL (32.0-36.0); Monocytes % (auto) 7.1 % (0.0-12.0); Neutrophils % (auto) 78.5 % (37.0-80.0); White Blood Cell 5.4 10^3/uL (4.4-10.8)
[2021-09-04 07:06] LABS: Mean Corpuscular Hemoglobin 23.5 pg (28.0-32.0); Mean Corpuscular Volume 74.9 fL (80.0-100.0)
[2021-09-04 07:30] LABS: Potassium 3.4 mmol/L (3.5-5.1)
[2021-09-04 07:56] LABS: Albumin 1.7 g/dL (3.4-5.0); BUN/Creatinine Ratio 27.9; Bilirubin, Total 0.2 mg/dL (0.2-1.0); Calcium 8.2 mg/dL (8.5-10.1); Phosphorus 2.2 mg/dL (2.5-4.90); Total Protein 6.1 g/dL (6.4-8.2)
[2021-09-04 09:00] VITALS: BP 139/71
[2021-09-04] MEDS: PANTOPRAZOLE 40 MG/10 ML VIAL INJ IV SCH (10:24)
[2021-09-04] MEDS: ENOXAPARIN SOD 30 MG/0.3 ML SYRINGE SC SCH (10:26)
[2021-09-04] MEDS: SODIUM CHLOR 0.9% PF (SALINE LOCK) 10ML VIAL/SYR IV SCH ×2 (10:27→22:41)
[2021-09-04] MEDS: FLUCONAZOLE 200MG/100ML 100 ML IV SCH (10:38)
[2021-09-04 13:00] VITALS: BP 142/67
[2021-09-04] MEDS ORDERED: POTASSIUM PHOSP 26.4MEQ(18MMOL) IN NS 100 ML IV ONE (13:45)
[2021-09-04 17:16] VITALS: BP 140/70
[2021-09-04] MEDS: TPN PER PHARMACY IV NR ×7 (19:53)
[2021-09-04] MEDS ORDERED: TPN PER PHARMACY IV NR ×7 (20:00)
[2021-09-04] MEDS: SODIUM CHLORIDE 0.9% 1,000 ML IV SCH ×2 (22:38→23:52)
[2021-09-05] MEDS: InsuLIN REG 1unit/0.01ml Soln (100units/ml) SC SCH ×5 (00:30→23:39)
[2021-09-05] MEDS: ONDANSETRON HCL 4 MG/2 ML VIAL IV PRN ×2 (02:24→09:25)
[2021-09-05] MEDS: HYDROmorphone HCL 2 MG/ML VL IV PRN ×4 (02:41→23:39)
[2021-09-05] MEDS: PIPERACILLIN-TAZOB 3.375GM 100 ML IV SCH ×3 (04:59→19:58)
[2021-09-05] MEDS: ACCU-CHEK COMFORT CURVE STRIP VI SCH ×5 (05:12→23:34)
[2021-09-05 07:34] LABS: Basophils # (auto) 0 10 ^3/uL (0-0.2); Basophils % (auto) 0.3 % (0.0-2.0); Eosinophils # (auto) 0 10 ^3/uL (0-0.8); Hemoglobin 8.4 g/dL (12.2-16.2); Lymphocytes # (auto) 0.8 10 ^3/uL (0.4-5.4); Mean Corpuscular Hemoglobin 23.5 pg (28.0-32.0); Mean Corpuscular Volume 75.6 fL (80.0-100.0); Monocytes # (auto) 0.3 10 ^3/uL (0-1.3); Neutrophils # (auto) 3.3 10 ^3/uL (1.6-8.6)
[2021-09-05 07:45] LABS: Albumin 1.7 g/dL (3.4-5.0); Magnesium 2.9 mg/dL (1.6-2.6); Potassium 4.1 mmol/L (3.5-5.1)
[2021-09-05 07:51] LABS: Eosinophils % (auto) 0.8 % (0.0-7.0); Hematocrit 27.1 % (36.0-46.0); Lymphocytes % (auto) 18.2 % (10.0-50.0); Monocytes % (auto) 6.5 % (0.0-12.0); Neutrophils % (auto) 74.2 % (37.0-80.0); Nucleated Red Blood Cells % 0.1 %; Red Blood Cells 3.58 10^6/uL (4.0-5.20); Red Cell Distribution Width 25.4 % (11.8-14.3); White Blood Cell 4.4 10^3/uL (4.4-10.8)
[2021-09-05 07:53] LABS: BUN/Creatinine Ratio 34.8; Bilirubin, Total 0.2 mg/dL (0.2-1.0); Phosphorus 2.3 mg/dL (2.5-4.90); Total Protein 5.8 g/dL (6.4-8.2)
[2021-09-05 09:00] VITALS: BP 149/79
[2021-09-05] MEDS: PANTOPRAZOLE 40 MG/10 ML VIAL INJ IV SCH (09:28)
[2021-09-05] MEDS: ENOXAPARIN SOD 30 MG/0.3 ML SYRINGE SC SCH (09:29)
[2021-09-05] MEDS ORDERED: SODIUM PHOSP 40 MEQ in D5W 5% 250 ML IV ONE (09:30)
[2021-09-05] MEDS: PROMETHAZINE HCL 25 MG/ML 1ML IV PRN (11:19)
[2021-09-05] MEDS: SODIUM CHLOR 0.9% PF (SALINE LOCK) 10ML VIAL/SYR IV SCH ×2 (11:41→22:03)
[2021-09-05 13:00] VITALS: BP 154/71
[2021-09-05] MEDS: FLUCONAZOLE 200MG/100ML 100 ML IV SCH (16:16)
[2021-09-05 17:00] VITALS: BP 152/73
[2021-09-05] MEDS: SODIUM CHLORIDE 0.9% 1,000 ML IV SCH (17:56)
[2021-09-05] MEDS ORDERED: TPN PER PHARMACY IV NR ×7 (20:00)
[2021-09-05 22:00] VITALS: BP 157/69
[2021-09-06] MEDS: SODIUM CHLORIDE 0.9% 1,000 ML IV SCH ×2 (03:20→10:15)
[2021-09-06] MEDS: PIPERACILLIN-TAZOB 3.375GM 100 ML IV SCH ×3 (04:20→20:54)
[2021-09-06] MEDS: HYDROmorphone HCL 2 MG/ML VL IV PRN ×4 (04:34→20:20)
[2021-09-06 05:00] VITALS: BP 155/74
[2021-09-06] MEDS: ACCU-CHEK COMFORT CURVE STRIP VI SCH ×3 (06:12→18:24)
[2021-09-06] MEDS: InsuLIN REG 1unit/0.01ml Soln (100units/ml) SC SCH ×3 (06:20→18:25)
[2021-09-06 08:04] LABS: Chloride 103 mmol/L (98-107); Potassium 4.8 mmol/L (3.5-5.1); Sodium 133 mmol/L (136-145)
[2021-09-06 08:17] LABS: Alanine Aminotransferase 13 U/L (13-56); Albumin 1.7 g/dL (3.4-5.0); Anion Gap 2 (5-15); Aspartate Aminotransferase 36 U/L (15-37); BUN/Creatinine Ratio 51.5; Bilirubin, Total 0.3 mg/dL (0.2-1.0); Blood Urea Nitrogen 17 mg/dL (7-18); Calcium 8.1 mg/dL (8.5-10.1); Carbon Dioxide 28 mmol/L (21-32); GFR African American 256 mL/min; GFR Non-African American 212 mL/min; Glucose 164 mg/dL (74-106); Phosphorus 2.7 mg/dL (2.5-4.90); Total Protein 6.2 g/dL (6.4-8.2)
[2021-09-06 08:29] LABS: Alkaline Phosphatase 69 U/L (45-117)
[2021-09-06 09:00] VITALS: BP 149/65
[2021-09-06] MEDS: FLUCONAZOLE 200MG/100ML 100 ML IV SCH (10:14)
[2021-09-06] MEDS: PANTOPRAZOLE 40 MG/10 ML VIAL INJ IV SCH (10:15)
[2021-09-06] MEDS: ENOXAPARIN SOD 30 MG/0.3 ML SYRINGE SC SCH (10:15)
[2021-09-06 13:00] VITALS: BP 141/71
[2021-09-06] MEDS: PROMETHAZINE HCL 25 MG/ML 1ML IV PRN (14:32)
[2021-09-06 17:00] VITALS: BP 144/71
[2021-09-06] MEDS ORDERED: TPN PER PHARMACY IV NR ×5 (20:00)
[2021-09-06 22:00] VITALS: BP 140/66
[2021-09-07] VITALS (7 sets, daily range): BP systolic 136–161; BP diastolic 56–76
[2021-09-07] MEDS: InsuLIN REG 1unit/0.01ml Soln (100units/ml) SC SCH ×5 (00:43→23:19)
[2021-09-07] MEDS: ACCU-CHEK COMFORT CURVE STRIP VI SCH ×5 (00:44→23:20)
[2021-09-07] MEDS: PROMETHAZINE HCL 25 MG/ML 1ML IV PRN ×5 (00:46→23:19)
[2021-09-07] MEDS: HYDROmorphone HCL 2 MG/ML VL IV PRN ×5 (00:46→23:18)
[2021-09-07] MEDS: PIPERACILLIN-TAZOB 3.375GM 100 ML IV SCH ×3 (04:34→20:46)
[2021-09-07 09:32] LABS: Albumin 1.8 g/dL (3.4-5.0); Calcium 8.2 mg/dL (8.5-10.1); Potassium 3.5 mmol/L (3.5-5.1)
[2021-09-07 09:39] LABS: BUN/Creatinine Ratio 35.4; Bilirubin, Total 0.2 mg/dL (0.2-1.0); Phosphorus 1.8 mg/dL (2.5-4.90); Total Protein 6.4 g/dL (6.4-8.2)
[2021-09-07] MEDS: PANTOPRAZOLE 40 MG/10 ML VIAL INJ IV SCH (09:42)
[2021-09-07] MEDS: ENOXAPARIN SOD 30 MG/0.3 ML SYRINGE SC SCH (09:57)
[2021-09-07] MEDS: FLUCONAZOLE 200MG/100ML 100 ML IV SCH (10:00)
[2021-09-07] MEDS ORDERED: POTASSIUM PHOSPHATE 44 MEQ in D5W 5% 250 ML IV ONE (12:00)
[2021-09-07] MEDS: SODIUM CHLORIDE 0.9% 1,000 ML IV SCH ×2 (15:43→22:48)
[2021-09-07] MEDS ORDERED: TPN PER PHARMACY IV NR ×7 (20:00)
[2021-09-08] MEDS: PIPERACILLIN-TAZOB 3.375GM 100 ML IV SCH ×3 (04:22→20:13)
[2021-09-08] MEDS: HYDROmorphone HCL 2 MG/ML VL IV PRN ×4 (04:23→19:02)
[2021-09-08] MEDS: PROMETHAZINE HCL 25 MG/ML 1ML IV PRN ×4 (04:24→18:58)
[2021-09-08 05:00] VITALS: BP 153/64
[2021-09-08] MEDS: ACCU-CHEK COMFORT CURVE STRIP VI SCH ×3 (06:18→19:03)
[2021-09-08] MEDS: InsuLIN REG 1unit/0.01ml Soln (100units/ml) SC SCH ×3 (06:20→19:03)
[2021-09-08 08:20] VITALS: BP 149/75
[2021-09-08 08:57] LABS: Potassium 3.8 mmol/L (3.5-5.1)
[2021-09-08] MEDS: ENOXAPARIN SOD 30 MG/0.3 ML SYRINGE SC SCH (08:59)
[2021-09-08] MEDS: PANTOPRAZOLE 40 MG/10 ML VIAL INJ IV SCH (08:59)
[2021-09-08 09:00] VITALS: BP 149/75
[2021-09-08] MEDS ORDERED: GASTROGRAFIN 120 ML SOL ONE (09:15)
[2021-09-08 09:19] LABS: Albumin 1.9 g/dL (3.4-5.0); BUN/Creatinine Ratio 42.1; Bilirubin, Total 0.3 mg/dL (0.2-1.0); Calcium 8.5 mg/dL (8.5-10.1); Pre Albumin 17.9 mg/dL (20.0-40.0); Total Protein 6.4 g/dL (6.4-8.2)
[2021-09-08] MEDS: FLUCONAZOLE 200MG/100ML 100 ML IV SCH (11:28)
[2021-09-08] MEDS: SODIUM CHLORIDE 0.9% 1,000 ML IV SCH (11:30)
[2021-09-08 13:00] VITALS: BP 152/71
[2021-09-08 17:00] VITALS: BP 155/59
[2021-09-08] MEDS ORDERED: TPN PER PHARMACY IV NR ×7 (20:00)
[2021-09-08 20:15] VITALS: BP 144/49
[2021-09-09] MEDS: PROMETHAZINE HCL 25 MG/ML 1ML IV PRN ×5 (00:22→20:26)
[2021-09-09] MEDS: ACCU-CHEK COMFORT CURVE STRIP VI SCH ×5 (00:23→23:36)
[2021-09-09] MEDS: HYDROmorphone HCL 2 MG/ML VL IV PRN ×5 (00:23→21:51)
[2021-09-09] MEDS: InsuLIN REG 1unit/0.01ml Soln (100units/ml) SC SCH ×5 (00:23→23:37)
[2021-09-09] MEDS: PIPERACILLIN-TAZOB 3.375GM 100 ML IV SCH ×3 (04:00→20:25)
[2021-09-09] MEDS: SODIUM CHLORIDE 0.9% 1,000 ML IV SCH ×2 (04:13→17:42)
[2021-09-09 04:38] VITALS: BP 143/68
[2021-09-09 05:54] LABS: Basophils # (auto) 0 10 ^3/uL (0-0.2); Eosinophils # (auto) 0 10 ^3/uL (0-0.8); Lymphocytes # (auto) 0.7 10 ^3/uL (0.4-5.4); Monocytes # (auto) 0.4 10 ^3/uL (0-1.3); Nucleated Red Blood Cells % 0.1 %; White Blood Cell 4.7 10^3/uL (4.4-10.8)
[2021-09-09 05:57] LABS: Basophils % (auto) 0.2 % (0.0-2.0); Eosinophils % (auto) 0.4 % (0.0-7.0); Hematocrit 26.2 % (36.0-46.0); Hemoglobin 8.7 g/dL (12.2-16.2); Lymphocytes % (auto) 15.2 % (10.0-50.0); Mean Corpuscular Hemoglobin 24.6 pg (28.0-32.0); Mean Corpuscular Volume 74.6 fL (80.0-100.0); Monocytes % (auto) 8.4 % (0.0-12.0); Neutrophils # (auto) 3.5 10 ^3/uL (1.6-8.6); Neutrophils % (auto) 75.8 % (37.0-80.0); Red Blood Cells 3.51 10^6/uL (4.0-5.20)
[2021-09-09 05:59] LABS: Red Cell Distribution Width 26.5 % (11.8-14.3)
[2021-09-09 06:00] LABS: Albumin 2.1 g/dL (3.4-5.0); Calcium 8.6 mg/dL (8.5-10.1); Potassium 3.5 mmol/L (3.5-5.1)
[2021-09-09 06:04] LABS: BUN/Creatinine Ratio 47.5; Bilirubin, Total 0.3 mg/dL (0.2-1.0); Phosphorus 2.3 mg/dL (2.5-4.90); Total Protein 6.7 g/dL (6.4-8.2)
[2021-09-09 08:30] VITALS: BP 170/69
[2021-09-09 09:00] VITALS: BP 170/69
[2021-09-09] MEDS ORDERED: POTASSIUM PHOSP 22MEQ(15MMOLE) in NS 100 ML IV ONE (09:00)
[2021-09-09] MEDS: PANTOPRAZOLE 40 MG/10 ML VIAL INJ IV SCH (09:43)
[2021-09-09] MEDS: FLUCONAZOLE 200MG/100ML 100 ML IV SCH (09:43)
[2021-09-09] MEDS: ENOXAPARIN SOD 30 MG/0.3 ML SYRINGE SC SCH (09:44)
[2021-09-09 13:00] VITALS: BP 167/71
[2021-09-09 17:29] VITALS: BP 168/82
[2021-09-09] MEDS ORDERED: TPN PER PHARMACY IV NR ×7 (20:00)
[2021-09-09 22:18] VITALS: BP 153/78
[2021-09-10] MEDS: PROMETHAZINE HCL 25 MG/ML 1ML IV PRN ×5 (00:59→22:19)
[2021-09-10] MEDS: HYDROmorphone HCL 2 MG/ML VL IV PRN ×4 (02:16→22:19)
[2021-09-10] MEDS: PIPERACILLIN-TAZOB 3.375GM 100 ML IV SCH ×3 (04:22→20:30)
[2021-09-10 04:30] VITALS: BP 156/82
[2021-09-10] MEDS: ACCU-CHEK COMFORT CURVE STRIP VI SCH ×3 (05:31→17:56)
[2021-09-10] MEDS: InsuLIN REG 1unit/0.01ml Soln (100units/ml) SC SCH ×3 (05:35→18:04)
[2021-09-10 05:47] LABS: Albumin 2.1 g/dL (3.4-5.0); Calcium 8.6 mg/dL (8.5-10.1); Potassium 3.8 mmol/L (3.5-5.1)
[2021-09-10 05:49] LABS: BUN/Creatinine Ratio 39.1
[2021-09-10 05:52] LABS: Bilirubin, Total 0.3 mg/dL (0.2-1.0); Phosphorus 2.7 mg/dL (2.5-4.90)
[2021-09-10 07:40] VITALS: BP 108/72
[2021-09-10 09:00] VITALS: BP 175/83
[2021-09-10] MEDS: FLUCONAZOLE 200MG/100ML 100 ML IV SCH (09:21)
[2021-09-10] MEDS: PANTOPRAZOLE 40 MG/10 ML VIAL INJ IV SCH (09:22)
[2021-09-10] MEDS: ENOXAPARIN SOD 30 MG/0.3 ML SYRINGE SC SCH (09:22)
[2021-09-10] MEDS: SODIUM CHLORIDE 0.9% 1,000 ML IV SCH (09:24)
[2021-09-10] MEDS: hydrALAZINE HCL 20 MG/ML VL IV PRN (11:36)
[2021-09-10 13:00] VITALS: BP 125/58
[2021-09-10 16:53] VITALS: BP 143/80
[2021-09-10] MEDS ORDERED: TPN PER PHARMACY IV NR ×8 (20:00)
[2021-09-10 22:00] VITALS: BP 165/63
[2021-09-11] MEDS: ACCU-CHEK COMFORT CURVE STRIP VI SCH ×4 (00:18→18:23)
[2021-09-11] MEDS: InsuLIN REG 1unit/0.01ml Soln (100units/ml) SC SCH ×4 (00:32→18:00)
[2021-09-11] MEDS: PROMETHAZINE HCL 25 MG/ML 1ML IV PRN ×4 (02:41→21:16)
[2021-09-11] MEDS: PIPERACILLIN-TAZOB 3.375GM 100 ML IV SCH ×3 (03:29→19:36)
[2021-09-11 04:48] VITALS: BP 175/74
[2021-09-11] MEDS: hydrALAZINE HCL 20 MG/ML VL IV PRN (04:50)
[2021-09-11] MEDS: HYDROmorphone HCL 2 MG/ML VL IV PRN (05:26)
[2021-09-11 05:57] LABS: Albumin 2.2 g/dL (3.4-5.0); Calcium 8.8 mg/dL (8.5-10.1); Potassium 3.5 mmol/L (3.5-5.1)
[2021-09-11 05:59] LABS: BUN/Creatinine Ratio 41.3; Bilirubin, Total 0.3 mg/dL (0.2-1.0); Phosphorus 2.6 mg/dL (2.5-4.90); Total Protein 7.1 g/dL (6.4-8.2)
[2021-09-11 08:23] VITALS: BP 153/78
[2021-09-11] MEDS ORDERED: MORPHINE SULFATE INJECTION 2 MG/ML SYRG IV PRN (09:00)
[2021-09-11] MEDS ORDERED: POTASSIUM PHOSPHATE 22 MEQ in SODIUM CHL 0.9% 100 ML IV ONE (09:00)
[2021-09-11] MEDS ORDERED: ACETAMINOPHEN 500 MG TAB PO PRN (09:15)
[2021-09-11] MEDS: FLUCONAZOLE 200MG/100ML 100 ML IV SCH (10:30)
[2021-09-11] MEDS: ENOXAPARIN SOD 40 MG/0.4 ML SYRINGE SC SCH (10:31)
[2021-09-11] MEDS: PANTOPRAZOLE 40 MG/10 ML VIAL INJ IV SCH (10:31)
[2021-09-11] MEDS: cloNIDine 0.2 mg/24hr 7DAY PATCH TD SCH (10:37)
[2021-09-11 12:51] VITALS: BP 144/87
[2021-09-11 16:40] VITALS: BP 138/82
[2021-09-11] MEDS: MORPHINE SULFATE INJECTION 2 MG/ML SYRG IV PRN (18:24)
[2021-09-11] MEDS ORDERED: TPN PER PHARMACY IV NR ×9 (20:00)
[2021-09-11 22:00] VITALS: BP 155/80
[2021-09-12] MEDS: MORPHINE SULFATE INJECTION 2 MG/ML SYRG IV PRN ×5 (00:06→22:03)
[2021-09-12] MEDS: hydrALAZINE HCL 20 MG/ML VL IV PRN ×2 (00:13→22:03)
[2021-09-12] MEDS: ACCU-CHEK COMFORT CURVE STRIP VI SCH ×4 (00:20→17:39)
[2021-09-12] MEDS: InsuLIN REG 1unit/0.01ml Soln (100units/ml) SC SCH ×4 (00:20→17:39)
[2021-09-12] MEDS: PIPERACILLIN-TAZOB 3.375GM 100 ML IV SCH ×3 (04:15→20:15)
[2021-09-12 05:00] VITALS: BP 135/72
[2021-09-12 06:13] LABS: Albumin 2.1 g/dL (3.4-5.0); BUN/Creatinine Ratio 42.6; Calcium 8.9 mg/dL (8.5-10.1); Potassium 3.7 mmol/L (3.5-5.1)
[2021-09-12 06:16] LABS: Bilirubin, Total 0.2 mg/dL (0.2-1.0); Phosphorus 2.3 mg/dL (2.5-4.90); Total Protein 6.6 g/dL (6.4-8.2)
[2021-09-12] MEDS: PROMETHAZINE HCL 25 MG/ML 1ML IV PRN ×4 (07:00→22:03)
[2021-09-12 09:00] VITALS: BP 148/76
[2021-09-12] MEDS ORDERED: SODIUM PHOSPH 24MEQ(18MMOL) IN NS 100 ML IV ONE (09:00)
[2021-09-12] MEDS: ENOXAPARIN SOD 40 MG/0.4 ML SYRINGE SC SCH (09:35)
[2021-09-12] MEDS: PANTOPRAZOLE 40 MG/10 ML VIAL INJ IV SCH (09:35)
[2021-09-12] MEDS: FLUCONAZOLE 200MG/100ML 100 ML IV SCH (11:01)
[2021-09-12 13:00] VITALS: BP 157/73
[2021-09-12 17:00] VITALS: BP 139/73
[2021-09-12] MEDS ORDERED: TPN PER PHARMACY IV NR ×10 (20:00)
[2021-09-12 22:35] VITALS: BP 154/79
[2021-09-13] MEDS: ACCU-CHEK COMFORT CURVE STRIP VI SCH ×4 (00:03→17:08)
[2021-09-13] MEDS: PROMETHAZINE HCL 25 MG/ML 1ML IV PRN ×6 (02:20→22:34)
[2021-09-13] MEDS: MORPHINE SULFATE INJECTION 2 MG/ML SYRG IV PRN ×5 (02:21→22:35)
[2021-09-13] MEDS: PIPERACILLIN-TAZOB 3.375GM 100 ML IV SCH ×3 (04:00→20:40)
[2021-09-13 05:15] VITALS: BP 130/72
[2021-09-13 05:58] LABS: Albumin 2.1 g/dL (3.4-5.0); Calcium 8.6 mg/dL (8.5-10.1); Magnesium 2.6 mg/dL (1.6-2.6); Potassium 3.7 mmol/L (3.5-5.1)
[2021-09-13] MEDS: InsuLIN REG 1unit/0.01ml Soln (100units/ml) SC SCH ×4 (06:00→17:08)
[2021-09-13 06:01] LABS: BUN/Creatinine Ratio 47.7; Bilirubin, Total 0.2 mg/dL (0.2-1.0); Phosphorus 2.7 mg/dL (2.5-4.90); Total Protein 6.4 g/dL (6.4-8.2)
[2021-09-13 09:00] VITALS: BP 156/78
[2021-09-13] MEDS: PANTOPRAZOLE 40 MG/10 ML VIAL INJ IV SCH (09:36)
[2021-09-13] MEDS: ENOXAPARIN SOD 40 MG/0.4 ML SYRINGE SC SCH (09:36)
[2021-09-13] MEDS: FLUCONAZOLE 200MG/100ML 100 ML IV SCH (09:36)
[2021-09-13 13:00] VITALS: BP 148/78
[2021-09-13 17:00] VITALS: BP 142/69
[2021-09-13] MEDS: TPN PER PHARMACY IV NR ×9 (20:36)
[2021-09-13 22:00] VITALS: BP 146/75
[2021-09-14] MEDS: PROMETHAZINE HCL 25 MG/ML 1ML IV PRN ×6 (02:35→19:32)
[2021-09-14] MEDS: MORPHINE SULFATE INJECTION 2 MG/ML SYRG IV PRN ×6 (02:36→19:31)
[2021-09-14 04:43] VITALS: BP 135/67
[2021-09-14] MEDS: ACCU-CHEK COMFORT CURVE STRIP VI SCH ×4 (05:25→19:55)
[2021-09-14] MEDS: InsuLIN REG 1unit/0.01ml Soln (100units/ml) SC SCH ×4 (05:25→20:09)
[2021-09-14] MEDS: PIPERACILLIN-TAZOB 3.375GM 100 ML IV SCH ×3 (05:25→19:29)
[2021-09-14 06:07] LABS: Albumin 2.2 g/dL (3.4-5.0); BUN/Creatinine Ratio 56.1; Bilirubin, Total 0.3 mg/dL (0.2-1.0); Calcium 8.4 mg/dL (8.5-10.1); Magnesium 2.1 mg/dL (1.6-2.6); Phosphorus 3.2 mg/dL (2.5-4.90); Total Protein 6.3 g/dL (6.4-8.2)
[2021-09-14 09:00] VITALS: BP 166/78
[2021-09-14] MEDS: FLUCONAZOLE 200MG/100ML 100 ML IV SCH (11:09)
[2021-09-14] MEDS: PANTOPRAZOLE 40 MG/10 ML VIAL INJ IV SCH (11:09)
[2021-09-14] MEDS: ENOXAPARIN SOD 40 MG/0.4 ML SYRINGE SC SCH (11:09)
[2021-09-14 13:00] VITALS: BP 158/68
[2021-09-14] MEDS ORDERED: LORATADINE 10 MG TAB PO ONE (16:00)
[2021-09-14 17:00] VITALS: BP 155/77
[2021-09-14] MEDS ORDERED: TPN PER PHARMACY IV NR ×9 (20:00)
[2021-09-14] MEDS: TPN PER PHARMACY IV NR ×9 (20:09)
[2021-09-15] MEDS: PROMETHAZINE HCL 25 MG/ML 1ML IV PRN ×5 (00:42→18:47)
[2021-09-15] MEDS: MORPHINE SULFATE INJECTION 2 MG/ML SYRG IV PRN ×5 (00:46→18:47)
[2021-09-15] MEDS: PIPERACILLIN-TAZOB 3.375GM 100 ML IV SCH ×3 (03:05→20:35)
[2021-09-15] MEDS: hydrALAZINE HCL 20 MG/ML VL IV PRN (03:37)
[2021-09-15 04:59] VITALS: BP 163/76
[2021-09-15 06:00] LABS: Basophils # (auto) 0 10 ^3/uL (0-0.2); Eosinophils # (auto) 0 10 ^3/uL (0-0.8); Hemoglobin 7.5 g/dL (12.2-16.2); Lymphocytes # (auto) 0.5 10 ^3/uL (0.4-5.4); Monocytes # (auto) 0.1 10 ^3/uL (0-1.3); Neutrophils # (auto) 2.1 10 ^3/uL (1.6-8.6); Red Blood Cells 3.12 10^6/uL (4.0-5.20); White Blood Cell 2.7 10^3/uL (4.4-10.8)
[2021-09-15] MEDS: InsuLIN REG 1unit/0.01ml Soln (100units/ml) SC SCH ×4 (06:00→18:29)
[2021-09-15 06:03] LABS: Basophils % (auto) 0.4 % (0.0-2.0); Eosinophils % (auto) 0.5 % (0.0-7.0); Hematocrit 23.2 % (36.0-46.0); Lymphocytes % (auto) 19.2 % (10.0-50.0); Mean Corpuscular Hgb Conc. 32.3 g/dL (32.0-36.0); Mean Corpuscular Volume 74.2 fL (80.0-100.0); Monocytes % (auto) 3.5 % (0.0-12.0); Neutrophils % (auto) 76.4 % (37.0-80.0)
[2021-09-15] MEDS: ACCU-CHEK COMFORT CURVE STRIP VI SCH ×4 (06:06→18:29)
[2021-09-15 06:17] LABS: Red Cell Distribution Width 25.9 % (11.8-14.3)
[2021-09-15 06:33] LABS: Potassium 3.9 mmol/L (3.5-5.1)
[2021-09-15 06:41] LABS: Albumin 2.2 g/dL (3.4-5.0); Bilirubin, Total 0.4 mg/dL (0.2-1.0); Calcium 8.8 mg/dL (8.5-10.1); Magnesium 2.4 mg/dL (1.6-2.6); Phosphorus 2.9 mg/dL (2.5-4.90); Total Protein 6.6 g/dL (6.4-8.2)
[2021-09-15 08:00] VITALS: BP 150/72
[2021-09-15] MEDS: FLUCONAZOLE 200MG/100ML 100 ML IV SCH (09:12)
[2021-09-15] MEDS: ENOXAPARIN SOD 40 MG/0.4 ML SYRINGE SC SCH (09:12)
[2021-09-15] MEDS: PANTOPRAZOLE 40 MG/10 ML VIAL INJ IV SCH (09:12)
[2021-09-15] MEDS ORDERED: SODIUM FERR GLUC 62.5MG/5ML 125 MG in SODIUM CHL 0.9% 100 ML IV ONE (11:00)
[2021-09-15] MEDS: LORATADINE 10 MG TAB PO SCH (12:43)
[2021-09-15 13:00] VITALS: BP 156/83
[2021-09-15] MEDS ORDERED: TPN PER PHARMACY IV NR ×8 (20:00)
[2021-09-15 22:00] VITALS: BP 160/81
[2021-09-16] MEDS: MORPHINE SULFATE INJECTION 2 MG/ML SYRG IV PRN ×5 (00:33→21:33)
[2021-09-16] MEDS: PROMETHAZINE HCL 25 MG/ML 1ML IV PRN ×6 (00:34→22:57)
[2021-09-16] MEDS: PIPERACILLIN-TAZOB 3.375GM 100 ML IV SCH (04:48)
[2021-09-16 05:00] VITALS: BP 154/79
[2021-09-16] MEDS: ACCU-CHEK COMFORT CURVE STRIP VI SCH ×4 (05:00→18:00)
[2021-09-16] MEDS: InsuLIN REG 1unit/0.01ml Soln (100units/ml) SC SCH ×4 (05:20→18:00)
[2021-09-16 07:32] LABS: Potassium 4.3 mmol/L (3.5-5.1)
[2021-09-16 07:49] LABS: Albumin 2.2 g/dL (3.4-5.0); BUN/Creatinine Ratio 54.9; Bilirubin, Total 0.4 mg/dL (0.2-1.0); Calcium 8.9 mg/dL (8.5-10.1); Magnesium 2.6 mg/dL (1.6-2.6); Phosphorus 3.1 mg/dL (2.5-4.90); Pre Albumin 24.1 mg/dL (20.0-40.0); Total Protein 6.6 g/dL (6.4-8.2)
[2021-09-16 08:35] VITALS: BP 158/80
[2021-09-16] MEDS: LORATADINE 10 MG TAB PO SCH (09:35)
[2021-09-16] MEDS: FLUCONAZOLE 200MG/100ML 100 ML IV SCH (09:35)
[2021-09-16] MEDS: PANTOPRAZOLE 40 MG/10 ML VIAL INJ IV SCH (09:35)
[2021-09-16] MEDS: ENOXAPARIN SOD 40 MG/0.4 ML SYRINGE SC SCH (09:36)
[2021-09-16] MEDS ORDERED: NYSTATIN (MOUTH-THROAT) 500,000 UNITS/5 ML SUSP MT ONE (10:30)
[2021-09-16] MEDS: levoFLOXacin 500MG 100 ML IV SCH (10:59)
[2021-09-16 12:20] VITALS: BP 160/75
[2021-09-16] MEDS: SODIUM FERR GLUC 62.5MG/5ML 125 MG in SODIUM CHL 0.9% 100 ML IV SCH (12:41)
[2021-09-16] MEDS: NYSTATIN (MOUTH-THROAT) 500,000 UNITS/5 ML SUSP MT SCH ×3 (12:41→21:40)
[2021-09-16] MEDS: metroNIDAZOLE 500MG/100ML 100 ML IV SCH ×2 (14:34→21:40)
[2021-09-16] MEDS ORDERED: OMNIPAQUE ORAL SOLN 500ml 12mg/ml PO ONE (16:32)
[2021-09-16] MEDS ORDERED: TPN PER PHARMACY IV NR ×7 (20:00)
[2021-09-17] MEDS: MORPHINE SULFATE INJECTION 2 MG/ML SYRG IV PRN ×2 (03:43→10:54)
[2021-09-17] MEDS: InsuLIN REG 1unit/0.01ml Soln (100units/ml) SC SCH ×4 (06:00→18:00)
[2021-09-17] MEDS: ACCU-CHEK COMFORT CURVE STRIP VI SCH ×4 (06:28→18:00)
[2021-09-17] MEDS: NYSTATIN (MOUTH-THROAT) 500,000 UNITS/5 ML SUSP MT SCH ×4 (06:28→22:00)
[2021-09-17] MEDS: metroNIDAZOLE 500MG/100ML 100 ML IV SCH ×2 (06:28→14:25)
[2021-09-17 06:51] LABS: Potassium 3.7 mmol/L (3.5-5.1)
[2021-09-17 07:06] LABS: Albumin 2.3 g/dL (3.4-5.0); BUN/Creatinine Ratio 59.6; Bilirubin, Total 0.4 mg/dL (0.2-1.0); Calcium 8.7 mg/dL (8.5-10.1); Magnesium 2.3 mg/dL (1.6-2.6); Phosphorus 2.8 mg/dL (2.5-4.90); Total Protein 7.2 g/dL (6.4-8.2)
[2021-09-17] MEDS ORDERED: IOHEXOL 300 MG/ML 100ML BOTTLE IJ ONE (08:10)
[2021-09-17 08:47] VITALS: BP 158/82
[2021-09-17] MEDS: PANTOPRAZOLE 40 MG/10 ML VIAL INJ IV SCH (10:14)
[2021-09-17] MEDS: LORATADINE 10 MG TAB PO SCH (10:14)
[2021-09-17] MEDS: levoFLOXacin 500MG 100 ML IV SCH (10:14)
[2021-09-17] MEDS: PROMETHAZINE HCL 25 MG/ML 1ML IV PRN (10:53)
[2021-09-17] MEDS: ENOXAPARIN SOD 40 MG/0.4 ML SYRINGE SC SCH (10:56)
[2021-09-17] MEDS: FLUCONAZOLE 200MG/100ML 100 ML IV SCH (10:59)
[2021-09-17 13:00] VITALS: BP 122/77
[2021-09-17 16:38] VITALS: BP 144/82
[2021-09-17] MEDS: SODIUM FERR GLUC 62.5MG/5ML 125 MG in SODIUM CHL 0.9% 100 ML IV SCH ×2 (17:00→18:00)
[2021-09-17 20:00] VITALS: BP 134/75
[2021-09-17] MEDS ORDERED: TPN PER PHARMACY IV NR ×8 (20:00)
[2021-09-17 22:00] VITALS: BP 134/75
[2021-09-18] VITALS (10 sets, daily range): BP systolic 109–155; BP diastolic 67–77
[2021-09-18] MEDS: ACCU-CHEK COMFORT CURVE STRIP VI SCH ×4 (00:42→23:02)
[2021-09-18] MEDS: PROMETHAZINE HCL 25 MG/ML 1ML IV PRN ×3 (04:18→21:28)
[2021-09-18] MEDS: MORPHINE SULFATE INJECTION 2 MG/ML SYRG IV PRN ×2 (04:21→09:03)
[2021-09-18 06:50] LABS: Basophils # (auto) 0 10 ^3/uL (0-0.2); Eosinophils # (auto) 0 10 ^3/uL (0-0.8); Hematocrit 21.6 % (36.0-46.0); Lymphocytes # (auto) 0.1 10 ^3/uL (0.4-5.4); Monocytes # (auto) 0 10 ^3/uL (0-1.3); Monocytes % (auto) 2.6 % (0.0-12.0); Neutrophils # (auto) 1.3 10 ^3/uL (1.6-8.6)
[2021-09-18 06:53] LABS: Basophils % (auto) 0.3 % (0.0-2.0); Eosinophils % (auto) 0.3 % (0.0-7.0); Lymphocytes % (auto) 9.1 % (10.0-50.0); Mean Corpuscular Hemoglobin 24.1 pg (28.0-32.0); Mean Corpuscular Hgb Conc. 32.5 g/dL (32.0-36.0); Mean Corpuscular Volume 74.3 fL (80.0-100.0); Neutrophils % (auto) 87.7 % (37.0-80.0); Red Cell Distribution Width 24.7 % (11.8-14.3)
[2021-09-18 07:02] LABS: Calcium 8.8 mg/dL (8.5-10.1); Magnesium 1.9 mg/dL (1.6-2.6)
[2021-09-18 07:08] LABS: BUN/Creatinine Ratio 58.9; Bilirubin, Total 0.3 mg/dL (0.2-1.0); Phosphorus 2.7 mg/dL (2.5-4.90); Total Protein 5.8 g/dL (6.4-8.2)
[2021-09-18 07:24] LABS: White Blood Cell 1.5 10^3/uL (4.4-10.8)
[2021-09-18] MEDS: PANTOPRAZOLE 40 MG/10 ML VIAL INJ IV SCH (09:02)
[2021-09-18] MEDS: ENOXAPARIN SOD 40 MG/0.4 ML SYRINGE SC SCH (09:02)
[2021-09-18] MEDS: LORATADINE 10 MG TAB PO SCH (09:02)
[2021-09-18] MEDS: levoFLOXacin 500MG 100 ML IV SCH (09:04)
[2021-09-18] MEDS: FLUCONAZOLE 200MG/100ML 100 ML IV SCH (09:15)
[2021-09-18] MEDS: NYSTATIN (MOUTH-THROAT) 500,000 UNITS/5 ML SUSP MT SCH ×4 (12:00→21:33)
[2021-09-18] MEDS: InsuLIN REG 1unit/0.01ml Soln (100units/ml) SC SCH ×4 (12:00→23:02)
[2021-09-18] MEDS: cloNIDine 0.2 mg/24hr 7DAY PATCH TD SCH (16:59)
[2021-09-18] MEDS: SODIUM FERR GLUC 62.5MG/5ML 125 MG in SODIUM CHL 0.9% 100 ML IV SCH ×3 (17:39)
[2021-09-18] MEDS ORDERED: TPN PER PHARMACY IV NR ×8 (20:00)
[2021-09-18] MEDS: KETOROLAC TROMETH 30 MG/ML 1ML VIAL IV PRN (21:28)
[2021-09-18] MEDS: metroNIDAZOLE 500MG/100ML 100 ML IV SCH (21:33)
[2021-09-19] MEDS: PROMETHAZINE HCL 25 MG/ML 1ML IV PRN ×3 (03:39→21:44)
[2021-09-19] MEDS: KETOROLAC TROMETH 30 MG/ML 1ML VIAL IV PRN ×3 (03:39→21:44)
[2021-09-19 04:00] VITALS: BP 133/73
[2021-09-19] MEDS: NYSTATIN (MOUTH-THROAT) 500,000 UNITS/5 ML SUSP MT SCH ×4 (05:47→22:52)
[2021-09-19] MEDS: ACCU-CHEK COMFORT CURVE STRIP VI SCH (05:48)
[2021-09-19] MEDS: metroNIDAZOLE 500MG/100ML 100 ML IV SCH (05:51)
[2021-09-19] MEDS: InsuLIN REG 1unit/0.01ml Soln (100units/ml) SC SCH (06:10)
[2021-09-19 06:29] LABS: Albumin 2.2 g/dL (3.4-5.0); BUN/Creatinine Ratio 43.3; Calcium 8.6 mg/dL (8.5-10.1); Magnesium 1.8 mg/dL (1.6-2.6); Potassium 3.1 mmol/L (3.5-5.1)
[2021-09-19 06:31] LABS: Bilirubin, Total 0.6 mg/dL (0.2-1.0); Phosphorus 2.6 mg/dL (2.5-4.90); Total Protein 6.4 g/dL (6.4-8.2)
[2021-09-19 06:33] LABS: Hemoglobin 8.7 g/dL (12.2-16.2)
[2021-09-19 06:35] LABS: Hematocrit 27.2 % (36.0-46.0); Mean Corpuscular Hemoglobin 24.2 pg (28.0-32.0); Mean Corpuscular Hgb Conc. 31.9 g/dL (32.0-36.0); Red Blood Cells 3.58 10^6/uL (4.0-5.20); Red Cell Distribution Width 25.2 % (11.8-14.3)
[2021-09-19 08:16] LABS: White Blood Cell 1.1 10^3/uL (4.4-10.8)
[2021-09-19 08:18] LABS: Basophils % (manual) 0 (0.0-2.0); Blast Cells 0; Metamyelocytes % 0; Myelocytes % 0; Promyelocytes % 0; Reactive Lymphocytes 0
[2021-09-19 09:00] VITALS: BP 119/73
[2021-09-19 09:31] LABS: Band Neutrophils % (manual) 1; Eosinophils % (manual) 1 (0-7); Lymphocytes % (manual) 41 (10.0-50.0); Monocytes % (manual) 3 (0-12)
[2021-09-19] MEDS ORDERED: POTASSIUM EFFERVESENT TAB 25 MEQ PO ONE (09:45)
[2021-09-19] MEDS ORDERED: FILGRASTIM(TBO) 480 MCG/0.8 ML SYRG SC ONE (09:45)
[2021-09-19] MEDS: LORATADINE 10 MG TAB PO SCH (11:41)
[2021-09-19] MEDS: cloNIDine 0.2 mg/24hr 7DAY PATCH TD SCH (11:42)
[2021-09-19] MEDS: PANTOPRAZOLE 40 MG/10 ML VIAL INJ IV SCH (11:43)
[2021-09-19] MEDS: FLUCONAZOLE 200MG/100ML 100 ML IV SCH (11:43)
[2021-09-19] MEDS: levoFLOXacin 500MG 100 ML IV SCH (11:43)
[2021-09-19 13:00] VITALS: BP 119/67
[2021-09-19] MEDS ORDERED: PIPERACILLIN-TAZOB 3.375GM 100 ML IV ONE (14:15)
[2021-09-19 15:44] LABS: BUN/Creatinine Ratio 52.2; Calcium 8.6 mg/dL (8.5-10.1)
[2021-09-19 15:52] LABS: Basophils # (auto) 0 10 ^3/uL (0-0.2); Eosinophils # (auto) 0 10 ^3/uL (0-0.8); Hematocrit 25.9 % (36.0-46.0); Hemoglobin 8.4 g/dL (12.2-16.2); Lymphocytes # (auto) 0.2 10 ^3/uL (0.4-5.4); Lymphocytes % (auto) 29.8 % (10.0-50.0); Mean Corpuscular Hemoglobin 24.6 pg (28.0-32.0); Mean Corpuscular Hgb Conc. 32.4 g/dL (32.0-36.0); Mean Corpuscular Volume 75.8 fL (80.0-100.0); Monocytes # (auto) 0 10 ^3/uL (0-1.3); Monocytes % (auto) 1.6 % (0.0-12.0); Neutrophils # (auto) 0.5 10 ^3/uL (1.6-8.6); Neutrophils % (auto) 67.6 % (37.0-80.0); Nucleated Red Blood Cells % 1.2 %; Red Blood Cells 3.42 10^6/uL (4.0-5.20)
[2021-09-19 15:57] LABS: Red Cell Distribution Width 24.7 % (11.8-14.3)
[2021-09-19 15:59] LABS: White Blood Cell 0.8 10^3/uL (4.4-10.8)
[2021-09-19 16:00] LABS: Potassium 2.9 mmol/L (3.5-5.1)
[2021-09-19 17:00] VITALS: BP 125/70
[2021-09-19] MEDS ORDERED: ACETAMINOPHEN 650 MG RECT SUPP PR PRN (17:00)
[2021-09-19] MEDS: POTASSIUM CHL 10MEQ/50ML 50 ML IV SCH (17:30)
[2021-09-19] MEDS: D5W/SOD CHLO 0.9% 1,000 ML IV SCH (17:52)
[2021-09-19 22:00] VITALS: BP 121/58
[2021-09-19] MEDS: PIPERACILLIN-TAZOB 3.375GM 100 ML IV SCH (22:50)
[2021-09-19] MEDS ORDERED: ZOLPIDEM TARTRATE 5 MG TAB PO ONE (23:15)
[2021-09-20] MEDS: D5W/SOD CHLO 0.9% 1,000 ML IV SCH ×3 (00:15→14:03)
[2021-09-20 05:00] VITALS: BP 137/77
[2021-09-20 05:51] LABS: Basophils # (auto) 0 10 ^3/uL (0-0.2); Basophils % (auto) 0.2 % (0.0-2.0); Eosinophils # (auto) 0 10 ^3/uL (0-0.8); Monocytes # (auto) 0 10 ^3/uL (0-1.3); Neutrophils # (auto) 1.9 10 ^3/uL (1.6-8.6)
[2021-09-20 05:55] LABS: Eosinophils % (auto) 0.3 % (0.0-7.0); Hematocrit 25.2 % (36.0-46.0); Hemoglobin 8.8 g/dL (12.2-16.2); Lymphocytes # (auto) 0.4 10 ^3/uL (0.4-5.4); Lymphocytes % (auto) 18.3 % (10.0-50.0); Mean Corpuscular Hemoglobin 26.3 pg (28.0-32.0); Mean Corpuscular Hgb Conc. 34.9 g/dL (32.0-36.0); Mean Corpuscular Volume 75.4 fL (80.0-100.0); Monocytes % (auto) 1.5 % (0.0-12.0); Neutrophils % (auto) 79.7 % (37.0-80.0); Nucleated Red Blood Cells % 0.2 %; Red Blood Cells 3.35 10^6/uL (4.0-5.20); White Blood Cell 2.3 10^3/uL (4.4-10.8)
[2021-09-20] MEDS: NYSTATIN (MOUTH-THROAT) 500,000 UNITS/5 ML SUSP MT SCH ×4 (06:02→20:55)
[2021-09-20] MEDS: PROMETHAZINE HCL 25 MG/ML 1ML IV PRN ×2 (06:02→19:09)
[2021-09-20] MEDS: PIPERACILLIN-TAZOB 3.375GM 100 ML IV SCH ×3 (06:02→20:57)
[2021-09-20] MEDS: KETOROLAC TROMETH 30 MG/ML 1ML VIAL IV PRN ×3 (06:03→19:09)
[2021-09-20 06:12] LABS: BUN/Creatinine Ratio 48.4; Calcium 8.7 mg/dL (8.5-10.1); Potassium 3.4 mmol/L (3.5-5.1)
[2021-09-20 06:25] LABS: Red Cell Distribution Width 25.1 % (11.8-14.3)
[2021-09-20 09:00] VITALS: BP 146/62
[2021-09-20] MEDS: FLUCONAZOLE 200MG/100ML 100 ML IV SCH (09:59)
[2021-09-20] MEDS: POTASSIUM CHL 10MEQ/50ML 50 ML IV SCH ×5 (11:08→16:26)
[2021-09-20] MEDS: PANTOPRAZOLE 40 MG/10 ML VIAL INJ IV SCH (11:15)
[2021-09-20] MEDS ORDERED: LORATADINE 10 MG TAB PO PRN (11:30)
[2021-09-20] MEDS: MAGNESIUM SULFATE 1GM/100ML 100 ML IV SCH ×2 (12:05→13:58)
[2021-09-20] MEDS: SODIUM FERR GLUC 62.5MG/5ML 125 MG in SODIUM CHL 0.9% 100 ML IV SCH (12:30)
[2021-09-20 13:00] VITALS: BP 136/65
[2021-09-20 17:00] VITALS: BP 137/64
[2021-09-20] MEDS ORDERED: ZOLPIDEM TARTRATE 5 MG TAB PO ONE (21:00)
[2021-09-20 22:08] VITALS: BP 123/60
[2021-09-20] MEDS: HEPARIN SODIUM (PORCINE) 5000 UNITS/ML 1ML VIAL SC SCH (22:31)
[2021-09-21] MEDS: PROMETHAZINE HCL 25 MG/ML 1ML IV PRN ×4 (01:27→18:38)
[2021-09-21] MEDS: KETOROLAC TROMETH 30 MG/ML 1ML VIAL IV PRN ×4 (01:28→18:38)
[2021-09-21 05:00] VITALS: BP 138/75
[2021-09-21] MEDS: PIPERACILLIN-TAZOB 3.375GM 100 ML IV SCH ×2 (05:27→14:21)
[2021-09-21] MEDS: NYSTATIN (MOUTH-THROAT) 500,000 UNITS/5 ML SUSP MT SCH ×3 (05:27→18:38)
[2021-09-21] MEDS: D5W/SOD CHLO 0.9% 1,000 ML IV SCH ×2 (06:15→16:15)
[2021-09-21 06:18] LABS: Hematocrit 25.9 % (36.0-46.0); Hemoglobin 8.7 g/dL (12.2-16.2)
[2021-09-21 09:00] VITALS: BP 112/59
[2021-09-21] MEDS: PANTOPRAZOLE 40 MG/10 ML VIAL INJ IV SCH (09:42)
[2021-09-21] MEDS: FLUCONAZOLE 200MG/100ML 100 ML IV SCH (09:42)
[2021-09-21] MEDS: HEPARIN SODIUM (PORCINE) 5000 UNITS/ML 1ML VIAL SC SCH (09:43)
[2021-09-21 13:00] VITALS: BP 130/70
[2021-09-21] MEDS: SODIUM FERR GLUC 62.5MG/5ML 125 MG in SODIUM CHL 0.9% 100 ML IV SCH (13:02)
[2021-09-21 13:05] LABS: BUN/Creatinine Ratio 33.3; Calcium 7.9 mg/dL (8.5-10.1); Magnesium 2.3 mg/dL (1.6-2.6); Phosphorus 1.7 mg/dL (2.5-4.90); Potassium 3.4 mmol/L (3.5-5.1)
[2021-09-21] MEDS ORDERED: POTASSIUM PHOSPHATE 26.4 MEQ in SODIUM CHL 0.9% 100 ML IV ONE (13:30)
[2021-09-21] MEDS ORDERED: TAMSULOSIN HYDROCHLORIDE 0.4 MG CAP PO ONE (14:15)
[2021-09-21 17:00] VITALS: BP 132/80
[2021-09-21 22:00] VITALS: BP 119/78
[2021-09-21] MEDS ORDERED: TEMAZEPAM 15 MG CAP PO ONE ×2 (23:45)
[2021-09-22] MEDS: KETOROLAC TROMETH 30 MG/ML 1ML VIAL IV PRN ×3 (00:08→19:06)
[2021-09-22] MEDS: PIPERACILLIN-TAZOB 3.375GM 100 ML IV SCH ×4 (04:53→22:54)
[2021-09-22] MEDS: NYSTATIN (MOUTH-THROAT) 500,000 UNITS/5 ML SUSP MT SCH ×5 (04:57→22:54)
[2021-09-22] MEDS: D5W/SOD CHLO 0.9% 1,000 ML IV SCH ×4 (04:58→17:03)
[2021-09-22 05:00] VITALS: BP 107/64
[2021-09-22 06:59] LABS: BUN/Creatinine Ratio 35.1; Calcium 7.5 mg/dL (8.5-10.1); Magnesium 1.9 mg/dL (1.6-2.6); Potassium 3.3 mmol/L (3.5-5.1)
[2021-09-22 07:26] LABS: Basophils # (auto) 0 10 ^3/uL (0-0.2); Basophils % (auto) 0.3 % (0.0-2.0); Eosinophils # (auto) 0 10 ^3/uL (0-0.8); Eosinophils % (auto) 3.5 % (0.0-7.0); Hematocrit 24.2 % (36.0-46.0); Hemoglobin 8.1 g/dL (12.2-16.2); Lymphocytes # (auto) 0.4 10 ^3/uL (0.4-5.4); Lymphocytes % (auto) 45.9 % (10.0-50.0); Mean Corpuscular Hemoglobin 24.9 pg (28.0-32.0); Mean Corpuscular Hgb Conc. 33.5 g/dL (32.0-36.0); Mean Corpuscular Volume 74.4 fL (80.0-100.0); Monocytes # (auto) 0.1 10 ^3/uL (0-1.3); Monocytes % (auto) 5.9 % (0.0-12.0); Neutrophils # (auto) 0.4 10 ^3/uL (1.6-8.6); Neutrophils % (auto) 44.4 % (37.0-80.0); Red Blood Cells 3.26 10^6/uL (4.0-5.20)
[2021-09-22 07:27] LABS: Bilirubin, Total 0.6 mg/dL (0.2-1.0); Phosphorus 2.4 mg/dL (2.5-4.90); Total Protein 5.8 g/dL (6.4-8.2)
[2021-09-22 07:29] LABS: White Blood Cell 0.9 10^3/uL (4.4-10.8)
[2021-09-22 08:00] VITALS: BP 104/58
[2021-09-22] MEDS ORDERED: POTASSIUM CHL 20 Meq TABLET PO ONE (10:30)
[2021-09-22] MEDS ORDERED: MICAFUNGIN SODIUM 100 MG in SODIUM CHL 0.9% 100 ML IV ONE (11:30)
[2021-09-22 12:00] VITALS: BP_SYST 102; BP_SYST 104; BP_DIAS 49; BP_DIAS 58
[2021-09-22] MEDS ORDERED: FILGRASTIM (TBO) 300 MCG/0.5 ML SYRG SC ONE (12:00)
[2021-09-22] MEDS: PROMETHAZINE HCL 25 MG/ML 1ML IV PRN (12:25)
[2021-09-22] MEDS: SODIUM FERR GLUC 62.5MG/5ML 125 MG in SODIUM CHL 0.9% 100 ML IV SCH (13:00)
[2021-09-22 16:00] VITALS: BP_SYST 109; BP_SYST 135; BP_DIAS 49; BP_DIAS 68
[2021-09-22] MEDS ORDERED: TAMSULOSIN HYDROCHLORIDE 0.4 MG CAP PO SCH (18:00)
[2021-09-22 20:00] VITALS: BP 110/56
[2021-09-22 22:00] VITALS: BP 139/57
[2021-09-23 05:00] VITALS: BP 88/49
[2021-09-23] MEDS: D5W/SOD CHLO 0.9% 1,000 ML IV SCH ×2 (06:28→22:10)
[2021-09-23] MEDS: PIPERACILLIN-TAZOB 3.375GM 100 ML IV SCH ×3 (06:29→22:13)
[2021-09-23] MEDS: NYSTATIN (MOUTH-THROAT) 500,000 UNITS/5 ML SUSP MT SCH ×4 (06:30→22:14)
[2021-09-23 06:44] LABS: Hemoglobin 8.1 g/dL (12.2-16.2); White Blood Cell 3.7 10^3/uL (4.4-10.8)
[2021-09-23 06:46] LABS: Hematocrit 24.3 % (36.0-46.0); Mean Corpuscular Hemoglobin 25.2 pg (28.0-32.0); Mean Corpuscular Hgb Conc. 33.3 g/dL (32.0-36.0); Mean Corpuscular Volume 75.7 fL (80.0-100.0); Red Blood Cells 3.22 10^6/uL (4.0-5.20)
[2021-09-23 07:13] LABS: Albumin 1.9 g/dL (3.4-5.0); Calcium 7.9 mg/dL (8.5-10.1); Potassium 3.5 mmol/L (3.5-5.1)
[2021-09-23 07:16] LABS: Red Cell Distribution Width 26.2 % (11.8-14.3)
[2021-09-23 07:17] LABS: Basophils % (manual) 0 (0.0-2.0); Blast Cells 0; Myelocytes % 0; Promyelocytes % 0; Reactive Lymphocytes 0
[2021-09-23 07:18] LABS: BUN/Creatinine Ratio 33.8; Bilirubin, Total 0.6 mg/dL (0.2-1.0); Total Protein 5.5 g/dL (6.4-8.2)
[2021-09-23 08:00] VITALS: BP_SYST 110; BP_SYST 81; BP_DIAS 49; BP_DIAS 59
[2021-09-23 08:20] LABS: Band Neutrophils % (manual) 7; Eosinophils % (manual) 4 (0-7); Lymphocytes % (manual) 17 (10.0-50.0); Metamyelocytes % 1; Monocytes % (manual) 1 (0-12)
[2021-09-23] MEDS ORDERED: TPN PER PHARMACY 0 ML IV SCH (09:15)
[2021-09-23] MEDS ORDERED: PANTOPRAZOLE 40 MG TAB PO SCH (10:00)
[2021-09-23 10:02] LABS: Magnesium 1.7 mg/dL (1.6-2.6)
[2021-09-23 10:09] LABS: Phosphorus 2.5 mg/dL (2.5-4.90); Pre Albumin 8.3 mg/dL (20.0-40.0)
[2021-09-23] MEDS: PANTOPRAZOLE 40 MG/10 ML VIAL INJ IV SCH (10:51)
[2021-09-23] MEDS: MICAFUNGIN SODIUM 100 MG in SODIUM CHL 0.9% 100 ML IV SCH (10:52)
[2021-09-23] MEDS ORDERED: POTASSIUM PHOSP 22MEQ(15MMOLE) in NS 100 ML IV ONE (11:30)
[2021-09-23 12:00] VITALS: BP 101/50
[2021-09-23] MEDS: FILGRASTIM (TBO) 300 MCG/0.5 ML SYRG SC SCH (12:33)
[2021-09-23] MEDS: SODIUM FERR GLUC 62.5MG/5ML 125 MG in SODIUM CHL 0.9% 100 ML IV SCH (13:04)
[2021-09-23] MEDS: MORPHINE SULFATE INJECTION 2 MG/ML SYRG IV PRN ×2 (14:00→18:29)
[2021-09-23] MEDS: PROMETHAZINE HCL 25 MG/ML 1ML IV PRN (14:15)
[2021-09-23 17:00] VITALS: BP 94/48
[2021-09-23] MEDS ORDERED: TPN PER PHARMACY IV NR ×7 (20:00)
[2021-09-23 22:00] VITALS: BP 76/37
[2021-09-24] VITALS (7 sets, daily range): BP systolic 83–103; BP diastolic 46–61
[2021-09-24] MEDS ORDERED: DEXTROSE (50%) 50ML SYRG IV SCH
[2021-09-24] MEDS: MORPHINE SULFATE INJECTION 2 MG/ML SYRG IV PRN ×3 (01:40→20:36)
[2021-09-24] MEDS: ACCU-CHEK COMFORT CURVE STRIP VI SCH ×4 (01:53→17:37)
[2021-09-24] MEDS: InsuLIN REG 1unit/0.01ml Soln (100units/ml) SC SCH ×4 (06:00→17:37)
[2021-09-24] MEDS: PIPERACILLIN-TAZOB 3.375GM 100 ML IV SCH (06:06)
[2021-09-24] MEDS: NYSTATIN (MOUTH-THROAT) 500,000 UNITS/5 ML SUSP MT SCH ×4 (06:08→22:00)
[2021-09-24 06:28] LABS: Albumin 1.8 g/dL (3.4-5.0); BUN/Creatinine Ratio 38.8; Calcium 8.1 mg/dL (8.5-10.1); Potassium 3.7 mmol/L (3.5-5.1)
[2021-09-24 06:31] LABS: Bilirubin, Total 0.7 mg/dL (0.2-1.0); Phosphorus 3.5 mg/dL (2.5-4.90); Total Protein 5.4 g/dL (6.4-8.2)
[2021-09-24 06:38] LABS: Mean Corpuscular Hemoglobin 25.4 pg (28.0-32.0); Mean Corpuscular Hgb Conc. 33.3 g/dL (32.0-36.0); Mean Corpuscular Volume 76.4 fL (80.0-100.0); Red Blood Cells 3.13 10^6/uL (4.0-5.20)
[2021-09-24 07:00] LABS: Red Cell Distribution Width 26.1 % (11.8-14.3)
[2021-09-24 07:01] LABS: Basophils % (manual) 0 (0.0-2.0); Blast Cells 0; Metamyelocytes % 0; Myelocytes % 0; Promyelocytes % 0; Reactive Lymphocytes 0
[2021-09-24 07:30] LABS: Band Neutrophils % (manual) 1; Eosinophils % (manual) 4 (0-7); Lymphocytes % (manual) 8 (10.0-50.0); Monocytes % (manual) 2 (0-12)
[2021-09-24] MEDS: PANTOPRAZOLE 40 MG/10 ML VIAL INJ IV SCH (10:20)
[2021-09-24] MEDS: MICAFUNGIN SODIUM 100 MG in SODIUM CHL 0.9% 100 ML IV SCH (10:59)
[2021-09-24] MEDS: FILGRASTIM (TBO) 300 MCG/0.5 ML SYRG SC SCH (11:05)
[2021-09-24] MEDS ORDERED: SODIUM CHLORIDE 0.9% 1,000 ML IV ONE (12:15)
[2021-09-24] MEDS ORDERED: SODIUM CHLORIDE 0.9% 250 ML IV ONE (12:30)
[2021-09-24] MEDS: SODIUM FERR GLUC 62.5MG/5ML 125 MG in SODIUM CHL 0.9% 100 ML IV SCH (12:44)
[2021-09-24] MEDS: D5W/SOD CHLO 0.9% 1,000 ML IV SCH (12:54)
[2021-09-24] MEDS: MEROPENEM 1GM IVPB 100 ML IV SCH ×2 (15:14→22:00)
[2021-09-24] MEDS ORDERED: [UNRECOGNIZED DRUG - OTHER] IV SCH ×6 (20:00)
[2021-09-24] MEDS ORDERED: SODIUM PHOSPHATES IV SCH ×6 (20:00)
[2021-09-24] MEDS ORDERED: POTASSIUM ACETATE IV SCH ×6 (20:00)
[2021-09-24] MEDS ORDERED: MAGNESIUM SULF IV SCH ×6 (20:00)
[2021-09-24 20:47] LABS: Urine Amorphous Crystal FEW /hpf (None Seen); Urine Bacteria FEW /hpf (None Seen); Urine Blood 1+ /uL (Negative); Urine Specific Gravity 1.031 (1.001-1.035); Urine WBC 3 /hpf (0 - 5)
[2021-09-25] VITALS (9 sets, daily range): BP systolic 96–116; BP diastolic 49–67
[2021-09-25] MEDS: PROMETHAZINE HCL 25 MG/ML 1ML IV PRN ×3 (01:34→20:18)
[2021-09-25] MEDS: D5W/SOD CHLO 0.9% 1,000 ML IV SCH ×2 (05:20→21:45)
[2021-09-25] MEDS: NYSTATIN (MOUTH-THROAT) 500,000 UNITS/5 ML SUSP MT SCH ×4 (06:00→21:46)
[2021-09-25] MEDS: InsuLIN REG 1unit/0.01ml Soln (100units/ml) SC SCH ×4 (06:00→17:24)
[2021-09-25] MEDS: MEROPENEM 1GM IVPB 100 ML IV SCH ×2 (06:00→18:20)
[2021-09-25] MEDS: ACCU-CHEK COMFORT CURVE STRIP VI SCH ×4 (06:00→17:24)
[2021-09-25 06:07] LABS: Albumin 1.6 g/dL (3.4-5.0); Potassium 3.2 mmol/L (3.5-5.1)
[2021-09-25 06:09] LABS: BUN/Creatinine Ratio 36.7
[2021-09-25 06:26] LABS: Bilirubin, Total 0.7 mg/dL (0.2-1.0); Phosphorus 2.9 mg/dL (2.5-4.90); Total Protein 5.1 g/dL (6.4-8.2)
[2021-09-25 07:26] LABS: Mean Corpuscular Volume 76.4 fL (80.0-100.0)
[2021-09-25 07:27] LABS: Hematocrit 20.6 % (36.0-46.0); Mean Corpuscular Hemoglobin 25.2 pg (28.0-32.0); Red Blood Cells 2.69 10^6/uL (4.0-5.20); White Blood Cell 7.2 10^3/uL (4.4-10.8)
[2021-09-25 08:13] LABS: Red Cell Distribution Width 26.2 % (11.8-14.3)
[2021-09-25 08:15] LABS: Basophils % (manual) 0 (0.0-2.0); Blast Cells 0; Eosinophils % (manual) 0 (0-7); Hemoglobin 6.8 g/dL (12.2-16.2); Metamyelocytes % 0; Myelocytes % 0; Promyelocytes % 0; Reactive Lymphocytes 0
[2021-09-25 08:33] LABS: Band Neutrophils % (manual) 12; Lymphocytes % (manual) 9 (10.0-50.0); Monocytes % (manual) 3 (0-12)
[2021-09-25] MEDS: PANTOPRAZOLE 40 MG/10 ML VIAL INJ IV SCH (09:11)
[2021-09-25] MEDS: MICAFUNGIN SODIUM 100 MG in SODIUM CHL 0.9% 100 ML IV SCH (09:11)
[2021-09-25] MEDS: MORPHINE SULFATE INJECTION 2 MG/ML SYRG IV PRN ×2 (09:40→20:19)
[2021-09-25] MEDS ORDERED: POTASSIUM CHL 10MEQ/50ML 50 ML IV SCH (12:00)
[2021-09-25] MEDS: SODIUM FERR GLUC 62.5MG/5ML 125 MG in SODIUM CHL 0.9% 100 ML IV SCH (12:06)
[2021-09-25] MEDS ORDERED: POTASSIUM PHOSPHATE 22 MEQ in SODIUM CHL 0.9% 100 ML IV ONE (12:30)
[2021-09-25] MEDS ORDERED: TPN PER PHARMACY IV NR ×7 (20:00)
[2021-09-26] MEDS: PROMETHAZINE HCL 25 MG/ML 1ML IV PRN ×2 (00:35→17:49)
[2021-09-26] MEDS: ACCU-CHEK COMFORT CURVE STRIP VI SCH ×5 (00:36→23:38)
[2021-09-26] MEDS: MORPHINE SULFATE INJECTION 2 MG/ML SYRG IV PRN ×2 (00:36→09:17)
[2021-09-26] MEDS: InsuLIN REG 1unit/0.01ml Soln (100units/ml) SC SCH ×5 (00:46→23:23)
[2021-09-26] MEDS: MEROPENEM 1GM IVPB 100 ML IV SCH ×3 (01:38→18:49)
[2021-09-26 04:30] VITALS: BP 97/61
[2021-09-26] MEDS: NYSTATIN (MOUTH-THROAT) 500,000 UNITS/5 ML SUSP MT SCH ×4 (05:52→23:37)
[2021-09-26 06:14] LABS: Basophils # (auto) 0 10 ^3/uL (0-0.2); Basophils % (auto) 0.1 % (0.0-2.0); Eosinophils # (auto) 0 10 ^3/uL (0-0.8); Hematocrit 25.8 % (36.0-46.0); Hemoglobin 8.7 g/dL (12.2-16.2); Lymphocytes # (auto) 0.8 10 ^3/uL (0.4-5.4); Monocytes # (auto) 0.3 10 ^3/uL (0-1.3); White Blood Cell 2.7 10^3/uL (4.4-10.8)
[2021-09-26 06:17] LABS: Eosinophils % (auto) 1.5 % (0.0-7.0); Lymphocytes % (auto) 30.1 % (10.0-50.0); Mean Corpuscular Hemoglobin 26.4 pg (28.0-32.0); Mean Corpuscular Hgb Conc. 33.8 g/dL (32.0-36.0); Monocytes % (auto) 11.2 % (0.0-12.0); Neutrophils # (auto) 1.5 10 ^3/uL (1.6-8.6); Neutrophils % (auto) 57.1 % (37.0-80.0); Nucleated Red Blood Cells % 0.1 %
[2021-09-26 06:45] LABS: Albumin 1.9 g/dL (3.4-5.0); BUN/Creatinine Ratio 34.5; Calcium 8.2 mg/dL (8.5-10.1); Magnesium 1.9 mg/dL (1.6-2.6)
[2021-09-26 06:54] LABS: Bilirubin, Total 0.7 mg/dL (0.2-1.0); Phosphorus 2.6 mg/dL (2.5-4.90); Total Protein 5.6 g/dL (6.4-8.2)
[2021-09-26 07:00] LABS: Red Cell Distribution Width 24.9 % (11.8-14.3)
[2021-09-26 08:35] VITALS: BP 102/63
[2021-09-26] MEDS: MICAFUNGIN SODIUM 100 MG in SODIUM CHL 0.9% 100 ML IV SCH (09:13)
[2021-09-26] MEDS: PANTOPRAZOLE 40 MG/10 ML VIAL INJ IV SCH (09:13)
[2021-09-26 12:43] VITALS: BP 101/63
[2021-09-26] MEDS: POTASSIUM CHL 10MEQ/50ML 50 ML IV SCH ×2 (13:26→15:33)
[2021-09-26] MEDS ORDERED: POTASSIUM PHOSPHATE 44 MEQ in D5W 5% 250 ML IV ONE (14:00)
[2021-09-26] MEDS: SODIUM FERR GLUC 62.5MG/5ML 125 MG in SODIUM CHL 0.9% 100 ML IV SCH (14:23)
[2021-09-26] MEDS: D5W/SOD CHLO 0.9% 1,000 ML IV SCH (15:34)
[2021-09-26 16:45] VITALS: BP 92/57
[2021-09-26] MEDS ORDERED: TPN PER PHARMACY IV NR ×9 (20:00)
[2021-09-26 22:00] VITALS: BP 99/66
[2021-09-26] MEDS: traZODone HCL 50 MG TAB PO SCH (23:38)
[2021-09-27] VITALS (17 sets, daily range): BP systolic 80–111; BP diastolic 40–65
[2021-09-27] MEDS: MEROPENEM 1GM IVPB 100 ML IV SCH ×3 (02:07→18:20)
[2021-09-27] MEDS: NYSTATIN (MOUTH-THROAT) 500,000 UNITS/5 ML SUSP MT SCH ×4 (06:11→21:30)
[2021-09-27] MEDS: InsuLIN REG 1unit/0.01ml Soln (100units/ml) SC SCH ×3 (06:13→18:00)
[2021-09-27] MEDS: ACCU-CHEK COMFORT CURVE STRIP VI SCH ×3 (06:17→18:20)
[2021-09-27 06:21] LABS: Potassium 4.3 mmol/L (3.5-5.1)
[2021-09-27 06:30] LABS: Albumin 1.8 g/dL (3.4-5.0); BUN/Creatinine Ratio 39.4; Bilirubin, Total 0.7 mg/dL (0.2-1.0); Magnesium 1.9 mg/dL (1.6-2.6); Phosphorus 3.5 mg/dL (2.5-4.90); Total Protein 5.3 g/dL (6.4-8.2)
[2021-09-27] MEDS: D5W/SOD CHLO 0.9% 1,000 ML IV SCH (06:31)
[2021-09-27] MEDS: PANTOPRAZOLE 40 MG/10 ML VIAL INJ IV SCH (08:07)
[2021-09-27] MEDS: SODIUM FERR GLUC 62.5MG/5ML 125 MG in SODIUM CHL 0.9% 100 ML IV SCH (12:00)
[2021-09-27] MEDS: MICAFUNGIN SODIUM 100 MG in SODIUM CHL 0.9% 100 ML IV SCH (12:22)
[2021-09-27] MEDS: SODIUM CHLORIDE 0.9% 1,000 ML IV SCH ×2 (12:45→20:45)
[2021-09-27 12:56] LABS: Hematocrit 24.6 % (36.0-46.0); Hemoglobin 8.2 g/dL (12.2-16.2); Mean Corpuscular Hemoglobin 26.3 pg (28.0-32.0); Mean Corpuscular Hgb Conc. 33.1 g/dL (32.0-36.0); Mean Corpuscular Volume 79.4 fL (80.0-100.0); Red Cell Distribution Width 24.7 % (11.8-14.3)
[2021-09-27] MEDS ORDERED: SODIUM CHLORIDE 0.9% 1,000 ML IV ONE (13:15)
[2021-09-27 13:52] LABS: Basophils % (manual) 0 (0.0-2.0); Blast Cells 0; Eosinophils % (manual) 0 (0-7); Metamyelocytes % 0; Myelocytes % 0; Promyelocytes % 0; Reactive Lymphocytes 0; White Blood Cell 1.3 10^3/uL (4.4-10.8)
[2021-09-27 14:13] LABS: Band Neutrophils % (manual) 2; Lymphocytes % (manual) 44 (10.0-50.0); Monocytes % (manual) 11 (0-12)
[2021-09-27] MEDS ORDERED: IOHEXOL 300 MG/ML 100ML BOTTLE IJ ONE (15:00)
[2021-09-27] MEDS: MORPHINE SULFATE INJECTION 2 MG/ML SYRG IV PRN ×2 (17:00→21:32)
[2021-09-27] MEDS: NOREPINEPHRINE 8 MG/250ML KIT 250 ML IV SCH (18:21)
[2021-09-27] MEDS ORDERED: TPN PER PHARMACY IV NR ×8 (20:00)
[2021-09-27] MEDS: traZODone HCL 50 MG TAB PO SCH (22:00)
[2021-09-27 23:21] LABS: Lactic Acid w/Reflex 7.7 mmol/L (0.4-2.0)
[2021-09-28] VITALS (25 sets, daily range): BP systolic 88–113; BP diastolic 48–64
[2021-09-28] MEDS: MEROPENEM 1GM IVPB 100 ML IV SCH ×3 (02:03→18:09)
[2021-09-28] MEDS: MORPHINE SULFATE INJECTION 2 MG/ML SYRG IV PRN ×3 (02:22→20:26)
[2021-09-28 03:25] LABS: Hemoglobin 8.7 g/dL (12.2-16.2)
[2021-09-28 03:28] LABS: Hematocrit 26.4 % (36.0-46.0); Mean Corpuscular Hemoglobin 26.4 pg (28.0-32.0); Red Blood Cells 3.29 10^6/uL (4.0-5.20)
[2021-09-28 03:36] LABS: BUN/Creatinine Ratio 41.3; Calcium 7.8 mg/dL (8.5-10.1); Magnesium 2.1 mg/dL (1.6-2.6); Potassium 4.6 mmol/L (3.5-5.1)
[2021-09-28 03:38] LABS: Lactic Acid w/Reflex 8.3 mmol/L (0.4-2.0)
[2021-09-28 03:45] LABS: Bilirubin, Total 0.5 mg/dL (0.2-1.0); Phosphorus 3.2 mg/dL (2.5-4.90); Total Protein 5.6 g/dL (6.4-8.2)
[2021-09-28 04:15] LABS: Red Cell Distribution Width 24.6 % (11.8-14.3)
[2021-09-28 04:16] LABS: White Blood Cell 1.6 10^3/uL (4.4-10.8)
[2021-09-28 04:18] LABS: Band Neutrophils % (manual) 0; Basophils % (manual) 0 (0.0-2.0); Blast Cells 0; Eosinophils % (manual) 0 (0-7); Metamyelocytes % 0; Myelocytes % 0; Promyelocytes % 0; Reactive Lymphocytes 0
[2021-09-28] MEDS: SODIUM CHLORIDE 0.9% 1,000 ML IV SCH ×3 (04:45→22:05)
[2021-09-28] MEDS: NYSTATIN (MOUTH-THROAT) 500,000 UNITS/5 ML SUSP MT SCH ×4 (05:30→21:25)
[2021-09-28 05:34] LABS: Lymphocytes % (manual) 35 (10.0-50.0); Monocytes % (manual) 9 (0-12)
[2021-09-28] MEDS: InsuLIN REG 1unit/0.01ml Soln (100units/ml) SC SCH ×4 (05:44→18:04)
[2021-09-28] MEDS: ACCU-CHEK COMFORT CURVE STRIP VI SCH ×4 (05:44→18:03)
[2021-09-28 09:05] LABS: Basophils # (auto) 0 10 ^3/uL (0-0.2); Basophils % (auto) 0.2 % (0.0-2.0); Eosinophils # (auto) 0 10 ^3/uL (0-0.8); Lymphocytes # (auto) 0.6 10 ^3/uL (0.4-5.4); Mean Corpuscular Hemoglobin 26.2 pg (28.0-32.0); Mean Corpuscular Hgb Conc. 32.7 g/dL (32.0-36.0); Mean Corpuscular Volume 80.1 fL (80.0-100.0); Monocytes # (auto) 0.2 10 ^3/uL (0-1.3); Nucleated Red Blood Cells % 0.2 %
[2021-09-28 09:07] LABS: Eosinophils % (auto) 1.9 % (0.0-7.0); Hematocrit 26.6 % (36.0-46.0); Hemoglobin 8.7 g/dL (12.2-16.2); Monocytes % (auto) 11.6 % (0.0-12.0); Neutrophils % (auto) 55.3 % (37.0-80.0); Red Blood Cells 3.32 10^6/uL (4.0-5.20)
[2021-09-28 09:11] LABS: Red Cell Distribution Width 24.3 % (11.8-14.3)
[2021-09-28 09:14] LABS: INR 1.41 (0.9-1.15); White Blood Cell 1.8 10^3/uL (4.4-10.8)
[2021-09-28] MEDS ORDERED: phytonadione 10 MG in SODIUM CHL 0.9% 50 ML IV ONE (09:45)
[2021-09-28] MEDS ORDERED: FILGRASTIM (TBO) 300 MCG/0.5 ML SYRG SC SCH (10:00)
[2021-09-28] MEDS: PANTOPRAZOLE 40 MG/10 ML VIAL INJ IV SCH (10:08)
[2021-09-28] MEDS: MICAFUNGIN SODIUM 100 MG in SODIUM CHL 0.9% 100 ML IV SCH (10:37)
[2021-09-28] MEDS: SODIUM FERR GLUC 62.5MG/5ML 125 MG in SODIUM CHL 0.9% 100 ML IV SCH (12:56)
[2021-09-28] MEDS: NOREPINEPHRINE 8 MG/250ML KIT 250 ML IV SCH (13:30)
[2021-09-28 15:28] LABS: White Blood Cell 4.9 10^3/uL (4.4-10.8)
[2021-09-28 15:30] LABS: Hematocrit 26.8 % (36.0-46.0); Mean Corpuscular Hemoglobin 27.1 pg (28.0-32.0); Mean Corpuscular Hgb Conc. 33.7 g/dL (32.0-36.0); Mean Corpuscular Volume 80.6 fL (80.0-100.0); Red Blood Cells 3.33 10^6/uL (4.0-5.20); Red Cell Distribution Width 24.4 % (11.8-14.3)
[2021-09-28 15:37] LABS: Basophils % (manual) 0 (0.0-2.0); Blast Cells 0; Metamyelocytes % 0; Myelocytes % 0; Promyelocytes % 0; Reactive Lymphocytes 0
[2021-09-28 16:24] LABS: Band Neutrophils % (manual) 1; Eosinophils % (manual) 2 (0-7); Lymphocytes % (manual) 19 (10.0-50.0); Monocytes % (manual) 8 (0-12)
[2021-09-28 18:05] LABS: Lactic Acid w/Reflex 11.2 mmol/L (0.4-2.0)
[2021-09-28] MEDS ORDERED: TPN PER PHARMACY IV NR ×8 (20:00)
[2021-09-28 20:39] LABS: Lactic Acid w/Reflex 11.9 mmol/L (0.4-2.0)
[2021-09-28] MEDS: traZODone HCL 50 MG TAB PO SCH (21:26)
[2021-09-29] VITALS (20 sets, daily range): BP systolic 30–117; BP diastolic 10–75
[2021-09-29] MEDS: MORPHINE SULFATE INJECTION 2 MG/ML SYRG IV PRN ×3 (00:13→20:18)
[2021-09-29] MEDS: InsuLIN REG 1unit/0.01ml Soln (100units/ml) SC SCH ×4 (00:14→18:09)
[2021-09-29] MEDS: ACCU-CHEK COMFORT CURVE STRIP VI SCH ×4 (00:14→18:09)
[2021-09-29 01:49] LABS: Hematocrit 30.8 % (36.0-46.0); Hemoglobin 9.5 g/dL (12.2-16.2); Mean Corpuscular Hemoglobin 25.8 pg (28.0-32.0); Mean Corpuscular Hgb Conc. 30.9 g/dL (32.0-36.0); Mean Corpuscular Volume 83.4 fL (80.0-100.0); Red Blood Cells 3.69 10^6/uL (4.0-5.20)
[2021-09-29 01:54] LABS: Red Cell Distribution Width 24.2 % (11.8-14.3)
[2021-09-29 01:58] LABS: Basophils % (manual) 0 (0.0-2.0); Blast Cells 0; Eosinophils % (manual) 0 (0-7); Metamyelocytes % 0; Promyelocytes % 0; Reactive Lymphocytes 0
[2021-09-29] MEDS: MEROPENEM 1GM IVPB 100 ML IV SCH ×2 (02:00→10:08)
[2021-09-29 03:27] LABS: Band Neutrophils % (manual) 17; Lymphocytes % (manual) 9 (10.0-50.0); Monocytes % (manual) 5 (0-12); Myelocytes % 1
[2021-09-29 04:27] LABS: Basophils # (auto) 0 10 ^3/uL (0-0.2); Basophils % (auto) 0.1 % (0.0-2.0); Eosinophils # (auto) 0 10 ^3/uL (0-0.8); Lymphocytes # (auto) 0.8 10 ^3/uL (0.4-5.4)
[2021-09-29 04:29] LABS: Eosinophils % (auto) 0.1 % (0.0-7.0); Hemoglobin 8.8 g/dL (12.2-16.2); Mean Corpuscular Hemoglobin 26.5 pg (28.0-32.0); Mean Corpuscular Hgb Conc. 32.7 g/dL (32.0-36.0); Mean Corpuscular Volume 81.2 fL (80.0-100.0); Monocytes # (auto) 0.6 10 ^3/uL (0-1.3); Monocytes % (auto) 5.8 % (0.0-12.0); Neutrophils # (auto) 8.7 10 ^3/uL (1.6-8.6); Nucleated Red Blood Cells % 0.1 %; Red Blood Cells 3.33 10^6/uL (4.0-5.20); White Blood Cell 10.1 10^3/uL (4.4-10.8)
[2021-09-29 04:30] LABS: Red Cell Distribution Width 24.2 % (11.8-14.3)
[2021-09-29 04:45] LABS: Albumin 2.1 g/dL (3.4-5.0); BUN/Creatinine Ratio 42.5; Calcium 7.7 mg/dL (8.5-10.1); Magnesium 2.6 mg/dL (1.6-2.6); Potassium 4.7 mmol/L (3.5-5.1)
[2021-09-29 04:47] LABS: Bilirubin, Total 0.6 mg/dL (0.2-1.0); Phosphorus 4.9 mg/dL (2.5-4.90); Total Protein 5.7 g/dL (6.4-8.2)
[2021-09-29] MEDS: NYSTATIN (MOUTH-THROAT) 500,000 UNITS/5 ML SUSP MT SCH ×3 (06:28→18:09)
[2021-09-29] MEDS: MICAFUNGIN SODIUM 100 MG in SODIUM CHL 0.9% 100 ML IV SCH (10:00)
[2021-09-29] MEDS: PANTOPRAZOLE 40 MG/10 ML VIAL INJ IV SCH (10:09)
[2021-09-29] MEDS: SODIUM CHLORIDE 0.9% 1,000 ML IV SCH (11:25)
[2021-09-29 12:25] LABS: Basophils # (auto) 0 10 ^3/uL (0-0.2); Eosinophils # (auto) 0 10 ^3/uL (0-0.8); Hemoglobin 7.9 g/dL (12.2-16.2); Lymphocytes # (auto) 0.5 10 ^3/uL (0.4-5.4); Mean Corpuscular Hgb Conc. 31.6 g/dL (32.0-36.0); Monocytes # (auto) 0.4 10 ^3/uL (0-1.3); Red Blood Cells 3.03 10^6/uL (4.0-5.20)
[2021-09-29] MEDS: SODIUM FERR GLUC 62.5MG/5ML 125 MG in SODIUM CHL 0.9% 100 ML IV SCH (12:59)
[2021-09-29] MEDS ORDERED: LACTATED RINGER'S 2,000 ML IV ONE (13:30)
[2021-09-29] MEDS ORDERED: ALBUMIN 25% 100 ML IV SCH (13:30)
[2021-09-29 14:34] LABS: Basophils % (auto) 0.1 % (0.0-2.0); Eosinophils % (auto) 0.3 % (0.0-7.0); Lymphocytes % (auto) 6.9 % (10.0-50.0); Mean Corpuscular Hemoglobin 26.1 pg (28.0-32.0); Mean Corpuscular Volume 82.6 fL (80.0-100.0); Monocytes % (auto) 5.1 % (0.0-12.0); Neutrophils # (auto) 6.4 10 ^3/uL (1.6-8.6); Neutrophils % (auto) 87.6 % (37.0-80.0); White Blood Cell 7.3 10^3/uL (4.4-10.8)
[2021-09-29 14:35] LABS: Red Cell Distribution Width 24.3 % (11.8-14.3)
[2021-09-29 15:49] LABS: Lactic Acid w/Reflex 16.4 mmol/L (0.4-2.0)
[2021-09-29 17:30] LABS: Folate (Folic Acid) 2.12 ng/mL (5.38-24)
[2021-09-29 18:19] LABS: Basophils # (auto) 0 10 ^3/uL (0-0.2); Eosinophils # (auto) 0 10 ^3/uL (0-0.8); Hematocrit 22.8 % (36.0-46.0); Hemoglobin 7.1 g/dL (12.2-16.2); Lymphocytes # (auto) 0.5 10 ^3/uL (0.4-5.4); Mean Corpuscular Hemoglobin 26.3 pg (28.0-32.0); Red Blood Cells 2.69 10^6/uL (4.0-5.20)
[2021-09-29 18:22] LABS: Basophils % (auto) 0.6 % (0.0-2.0); Mean Corpuscular Volume 84.6 fL (80.0-100.0); Monocytes # (auto) 0.2 10 ^3/uL (0-1.3); Monocytes % (auto) 2.9 % (0.0-12.0); Neutrophils # (auto) 7.2 10 ^3/uL (1.6-8.6); Neutrophils % (auto) 90.5 % (37.0-80.0); White Blood Cell 7.9 10^3/uL (4.4-10.8)
[2021-09-29] MEDS: NOREPINEPHRINE 8 MG/250ML KIT 250 ML IV SCH (18:40)
[2021-09-29 18:59] LABS: Red Cell Distribution Width 24.2 % (11.8-14.3)
[2021-09-29] MEDS ORDERED: MORPHINE SULFATE 4 MG/ML SYR/VIAL ONE (19:25)
[2021-09-29] MEDS ORDERED: LORazepam 2MG/ML-1ML VIAL ONE (19:26)
[2021-09-29] MEDS ORDERED: LORazepam 2MG/ML-1ML VIAL IV PRN ×2 (19:30)
[2021-09-29] MEDS ORDERED: MORPHINE SULFATE 4 MG/ML SYR/VIAL IV PRN ×2 (19:30)
[2021-09-29] MEDS ORDERED: FLEET ENEMA(ADULT) 135 ML PR PRN (19:30)
[2021-09-29] MEDS ORDERED: HYDROmorphone HCL 2 MG/ML VL IV PRN (19:30)
[2021-09-29 19:47] LABS: Lactic Acid w/Reflex 20.1 mmol/L (0.4-2.0)
[2021-09-29] MEDS ORDERED: TPN PER PHARMACY IV NR ×4 (20:00)
[2021-09-29] MEDS ORDERED: AMINO ACID INFUSION IN D10W 1,000 ML IV NR (20:00)
[2021-09-29] MEDS ORDERED: MEROPENEM 1GM IVPB 100 ML IV SCH (22:00)
== END 2021-09-29 23:20 | DRG 853 ==
LOC: EDBD 01:10 → ER 01:13 → OVERFLOW 08-29 14:09 → TELE-CENTR 08-29 16:46 → CENTRAL 09-17 21:50 → TELE-CENTR 09-18 19:30 → CENTRAL 09-21 15:27 → ICU WEST 09-27 15:12
PROVIDERS: ADMIT Hospitalist; ATTEND Internal Medicine
PROC: 0JQ80ZZ Repair Abdomen Subcutaneous Tissue and Fascia, Open Approach (ICD-10-PCS; principal; 2021-08-29)
PROC: 30233N1 Transfusion of Nonautologous Red Blood Cells into Peripheral Vein, Percutaneous Approach (ICD-10-PCS; 2021-08-29)
PROC: 02HV33Z Insertion of Infusion Device into Superior Vena Cava, Percutaneous Approach (ICD-10-PCS; 2021-08-30)
PROC: B548ZZA Ultrasonography of Superior Vena Cava, Guidance (ICD-10-PCS; 2021-08-30)
PROC: 0J9800Z Drainage of Abdomen Subcutaneous Tissue and Fascia with Drainage Device, Open Approach (ICD-10-PCS; 2021-08-30)
PROC: 05HY33Z Insertion of Infusion Device into Upper Vein, Percutaneous Approach (ICD-10-PCS; 2021-09-29)
PROC: 30233R1 Transfusion of Nonautologous Platelets into Peripheral Vein, Percutaneous Approach (ICD-10-PCS; 2021-09-29)
DX: A41.9 Sepsis, unspecified organism (principal); K65.1 Peritoneal abscess; K63.1 Perforation of intestine (nontraumatic); R65.21 Severe sepsis with septic shock; E43 Unspecified severe protein-calorie malnutrition; T81.43XA Infection following a procedure, organ and space surgical site, initial encounter; T81.30XA Disruption of wound, unspecified, initial encounter; K63.2 Fistula of intestine; L02.211 Cutaneous abscess of abdominal wall; D68.9 Coagulation defect, unspecified; L03.311 Cellulitis of abdominal wall; Z20.822 Contact with and (suspected) exposure to COVID-19; D75.89 Other specified diseases of blood and blood-forming organs; Z66 Do not resuscitate; D64.9 Anemia, unspecified; M19.90 Unspecified osteoarthritis, unspecified site; K21.00 Gastro-esophageal reflux disease with esophagitis, without bleeding; K44.9 Diaphragmatic hernia without obstruction or gangrene; I65.21 Occlusion and stenosis of right carotid artery; F41.9 Anxiety disorder, unspecified; N73.9 Female pelvic inflammatory disease, unspecified; E66.9 Obesity, unspecified; E87.6 Hypokalemia; J44.9 Chronic obstructive pulmonary disease, unspecified; I10 Essential (primary) hypertension; D72.819 Decreased white blood cell count, unspecified; D69.6 Thrombocytopenia, unspecified; E78.5 Hyperlipidemia, unspecified; F12.90 Cannabis use, unspecified, uncomplicated; I25.10 Atherosclerotic heart disease of native coronary artery without angina pectoris; E87.8 Other disorders of electrolyte and fluid balance, not elsewhere classified; Z98.84 Bariatric surgery status; Z68.23 Body mass index [BMI] 23.0-23.9, adult; Z51.5 Encounter for palliative care; Z88.5 Allergy status to narcotic agent; Z90.710 Acquired absence of both cervix and uterus; Z82.49 Family history of ischemic heart disease and other diseases of the circulatory system
CPT/HCPCS: 12001; 36415; 36430; 36569; 70450; 71045; 74176; 74177; 74250; 80048; 80053; 80061; 80307; 81001; 82040; 82607; 82746; 82962; 83036; 83605; 83690; 83735; 84100; 84478; 84484; 85007; 85014; 85018; 85025; 85027; 85049; 85379; 85610; 85730; 86850; 86900; 86901; 86920; 87040; 87070; 87075; 87077; 87081; 87086; 87186; 87205; 87426; 93005; 96365; 96375; 97110; 97116; 97163; 97530; 99291; C9113; G0378; J0330; J0696; J1447; J1450; J1815; J1885; J1956; J2185; J2248; J2250; J2405; J2543; J2704; J3430; J3490; J7042; J7060; J7131; P9047